=== PATIENT | female | born 1970 ===

== ENCOUNTER 2024-12-14 13:56 | Outpatient (AMB) | payer OTHER, SELFPAY ==
--- NOTE | 2024-12-14 13:47 | HO.NEPHOV ---
Vital Signs 12/14/24 13:57 Height 5 ft 1 in Weight 172 lb 8 oz BMI 32.6 BP 132/86 Blood Pressure Location Lt brachial Position Sitting Pulse 104 H Pulse Source Pulse Oximeter Pulse Oximetry (%) 96 Oxygen Delivery Method Room Air Intake Visit Reasons: ENP: Primary Hypertension Allergies lobster Allergy (Verified 12/14/24 13:47) Unknown Medication List - Last Reconciled 12/14/24 by Michael Man MD amlodipine-benazepril 5-20 mg 1 cap PO DAILY atorvastatin 40 mg PO DAILY docusate sodium 100 mg PO DAILY epinephrine IM ferrous sulfate 325 mg PO DAILY labetalol 200 mg PO BID omeprazole 20 mg PO DAILY HPI Comments Details: Middle-aged woman with a history of hypertension since her mid 40s. Recently she was in [facility] Emergency room for chest pain and her blood pressure is elevated. Currently she is on amlodipine benazepril 5/20 a day along with labetalol 200 mg b.i.d.. She is here for further evaluation of hypertension. [facility] Medical History (Updated 12/14/24 @ 14:06 by Michael Man MD) Migraine headache Insomnia Hyperlipidemia Gastroesophageal reflux disease Anemia Hypertension Enlarged uterus Surgical History Hx of tubal ligation H/O breast biopsy H/O breast surgery History of reconstruction of right breast S/P lumpectomy, right breast History of appendectomy Family History Father Coronary artery disease Maternal Grandmother Lung cancer Social History (Updated 12/14/24 @ 13:59 by Cesilia Harrison CMA) Household Members: Significant Other Housing: House Alcohol intake: never Patient Tobacco Use Status: Never used Tobacco service: No Current occupational status: employed Review of Systems Const Denies fever(s) and Denies weight loss Card Denies chest pain Resp Denies cough and Denies hemoptysis GI Denies abdominal pain, Denies diarrhea and Denies nausea Musc Denies back pain Neuro Denies focal weakness Physical Exam Vital Signs: Last Vital Signs Pulse 104 H 12/14/24 13:57 BP 132/86 12/14/24 13:57 Pulse Ox 96 12/14/24 13:57 Oxygen Delivery Method Room Air 12/14/24 13:57 BMI result Body Mass Index 32.6 Comfortable Neck supple no JVD. Lungs entry equal no rales. Heart S1-S2 heard no gallop or rub. Abdomen soft nontender. Neuro alert awake oriented. No asterixis. Extremities no edema. Results Reviewed Results Reviewed: On November 19 2024, potassium was 3.3 serum creatinine was normal total CO2 was 33 Nephrology Results: No Data to Display Assessment & Plan Assessment & Plan (1) Hypertension: Code(s): I10 - Essential (primary) hypertension Category: Medical Plan Middle aged woman with resistant hypertension. She had an episode of hypokalemia. With mild alkalosis ,we should rule out hyperaldosteronism. Plan is to check serum aldosterone and plasma renin activity. I have asked her to hold amlodipine benazepril for 2 weeks and then go for the blood work. Once the blood work is completed she can go back on amlodipine benazepril. In the meantime she will stay on amlodipine 10 mg and labetalol 100 mg b.i.d.. Obtain 24 hour ambulatory blood pressure monitoring. Encouraged her to stay on low-sodium diet She was returned to office once the workup is completed. . Orders: Orders Aldost/Renin 2 Weeks I10 - Essential (primary) hypertension Basic Metabolic Panel 2 Weeks I10 - Essential (primary) hypertension Creatinine Urine 2 Weeks I10 - Essential (primary) hypertension Aldosterone 2 Weeks I10 - Essential (primary) hypertension Renin 2 Weeks I10 - Essential (primary) hypertension Total Protein Urine Random 2 Weeks I10 - Essential (primary) hypertension UA and rflx microscopic 2 Weeks I10 - Essential (primary) hypertension AMB 24 HR B/P Monitor PLACEMENT Today I10 - Essential (primary) hypertension Medications: New amlodipine 10 mg PO DAILY 30 tabs 1RF Coding Level of Care Code New Pt Level 4 (08100) Diagnoses Hypertension I10
[2024-12-14 13:57] VITALS: BP 132/86; PULSE 104; O2SAT 96; BMI 32.6
--- OUTSIDE RECORDS SUMMARY | 2024-12-14 16:06 | XMS_ITS | Clinical Summary ---
Author Organization [address] [place] [address] [place] [phone] Phone Care Team Providers Care Participant Administrator Name Role Phone Barbara Dunn MD Primary Care Provider [phone] Allergies Active Allergy Reactions Criticality Noted Date Comments Lobster 07/08/2024 Medications atorvastatin (LIPITOR) 40 mg tablet Take 1 Tablet by mouth daily. 3 Active labetaloL (NORMODYNE) 200 mg tablet 3 Active melatonin 10 mg tablet Take 1 Tab by mouth at bedtime as needed. Active omeprazole (PriLOSEC) [address] capsule Take 1 Capsule by mouth daily. 4 Active zolpidem (AMBIEN) 10 mg tablet Take 10 mg by mouth daily. 9 Active amLODIPine-clay zepril (LOTREL) 5-20 mg per capsule Take 1 Capsule by mouth daily. 3 Active docusate sodium (COLACE) 100 mg capsule Take 1 capsule (100 mg total) by mouth 1 (one) time each day. 90 each 1 5 05/23/20 25 Active EPINEPHrine (EpiPen 2-Gabriel) 0.3 mg/0.3 mL injection Inject 0.3 mL (0.3 mg total) under the skin if needed for anaphylaxis. 1 each 3 5 Active ferrous sulfate 325 mg (65 mg elemental iron) tablet Take 1 tablet (325 mg total) by mouth 1 (one) time each day. 90 tablet 1 5 Active docusate sodium (COLACE) 100 mg capsule Take 1 Capsule by mouth daily. 4 11/25/19 25 Discontinu ed(Reorder ) EPINEPHrine (EpiPen 2-Gabriel) 0.3 mg/0.3 mL injection Inject 0.3 mg mL into the skin daily as needed (Severe allergic anaphylaxis). 2 11/25/19 25 Discontinu ed(Reorder ) ferrous sulfate 325 mg (65 mg elemental iron) tablet TAKE 1 TABLET BY MOUTH EVERY DAY 3 11/25/19 25 Discontinu ed(Reorder ) Active Problems Problem Noted Date Diagnosed Date Enlarged uterus 05/07/2022 Overview (05/27/2024): Last Assessment & Plan: Pt informed likely fibroids and these are benign. Asymptomatic. Will obtain US to confirm. Hypertension 12/26/2017 Anemia 02/11/2017 Gastroesophageal reflux disease 02/11/2017 Hyperlipidemia 04/10/2016 Insomnia 11/02/2015 Migraine headache 03/23/2014 Encounters Date Type Department Care Team Description 11/25/2024 Telephone Adult Medicine [facility] [address] [place] [address] Barbara Dunn MD Joseph: Fax haritha 11/24/2024 2:00 PM EDT Office Visit Internal Medicine [facility] [address] [place] [address] Oliver Robins MD Primary hypertension (Primary Dx); Hypercholesterolemia; Chest pain at rest 11/19/2024 8:05 PM EDT - 11/20/2024 4:[address] [facility] Emergency [address] [place] [address] Discharge Disposition: Home or Self Care from Last 3 Months Immunizations Name Administration Dates Next Due Pfizer SARS-CoV-2 COVID-19, mRNA, LNP-S, preservative free 02/08/2021 Tdap Tetanus diptheria acell ular pertussis (Boostrix; Adacel) 7yo and older 02/06/2024 Surgical History Surgery Date Site/Laterality Comments TUBAL LIGATION PROCEDURE: HISTORICAL TUBAL LIGATION OTHER SURGICAL HISTORY 01/03/2016 Right PROCEDURE: RADICAL REMOVAL OF BREAST; COMMENT: residual ductal carcinoma BREAST RECONSTRUCTION 2014 Right PROCEDURE: BREAST RECONSTRUCTION BREAST LUMPECTOMY 11/24/2015 Right PROCEDURE: HISTORICAL BREAST LUMPECTOMY; COMMENT: with reexcision (12/06/15) STEREOTACTIC BREAST BIOPSY 10/30/2015 Right PROCEDURE: STEREOTACTIC BREAST BIOPSY; COMMENT: ductal carcinoma in situ OTHER SURGICAL HISTORY 12/11/2017 Right PROCEDURE: MS REVISION OF RECONSTRUCTED BREAST; COMMENT: right nipple areaolar complex APPENDECTOMY Medical History Medical History Date Comments Anemia DX:Anemia Gastroesophageal reflux disease 02/11/2017 DX:Gastroesophageal reflux disease History of breast cancer 10/29/2016 DX:Hist ory of breast cancer; COMMENT: 2015 S/p right masectomy for ER + DCIS, widespread; S/p reconstruction; 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, CARRIER Hyperlipidemia 04/10/2016 DX:Hyperlipidemi a Hypertension 12/26/2017 DX:Hypertension Insomnia 11/02/2015 DX:Insomnia Migraine headache 03/23/2014 DX:Migraine he adache Heart murmur Constipation Family History Medical History Relation Name Comments Coronary artery disease Father Lung cancer Maternal Grandmother Colon cancer Neg Hx Ovarian cancer Neg Hx Pancreatic cancer Neg Hx Prostate cancer Neg Hx Uterine cancer Neg Hx Relation Name Status Comments Daughter Alive Father Maternal Grandfather Maternal Grandmother Mother Alive Paternal Grandfather Paternal Grandmother Social History Tobacco Use Types Packs/Day Years Used Date Smoking Tobacco: Never Smokeless Tobacco: Never Alcohol Use Standard Drinks/Week Comments No 0 (1 standard drink = 0.6 oz pur e alcohol) Interpersonal Safety Answer Date Record ed Physical Abuse 07/08/2024 Verbal Abuse 07/08/2024 Comments No Sex and Gender Information Value Date Recorded Sex Assigned at Not on file Legal Sex Female 3:03 PM EST Gender Identity Not on file Sexual Orientation Not on file Obstetrics History Last Filed Vital Signs Vital Sign Reading Time Taken Comments Blood Pressure 160/88 11/24/2024 2:22 PM EDT Pulse 90 11/24/2024 2:22 PM EDT Temperature 36.1 ??C (96.9 ??F) 11/24/2024 2:22 PM ED T Respiratory Rate 18 11/19/2024 11:40 PM EDT Oxygen Saturation 98% 11/24/2024 2:22 PM EDT Inhaled Oxygen Concentration - - Weight 75 kg (165 lb 6.4 oz) 11/24/2024 2:22 PM EDT Height 154.9 cm (5' 1 ) 11/24/2024 2:22 PM EDT Body Mass Index 31.25 11/24/2024 2:22 PM EDT Plan of Treatment Upcoming Encounters Date Type Department Care Team (Late st Contact Info) Description 02/03/2025 9:00 AM EDT [facility]ointment [facility] [address] [place] [phone] 03/28/2025 3:15 PM EDT Office Visit Internal Medicine - [place] [address] [facility] [address] [place] [phone] Oliver Robins MD [address] [facility] [address] [place] [address] Health Maintenance Due Date Last Done Comments Breast Cancer Screening 1970 Hepatitis B Vaccines (1 of 3 - 19+ 3-dose series) 1990 Pneumococcal Vaccine: 50+ Years (1 of 1 - PCV) 2021 Zoster Vaccines (1 of 2) 2021 Social Influencers of Health Screening 07/17/2022 COVID-19 Vaccine ( - season) 2024 09/13/2021, 02/08/2021, 01/18/2021 Depression Screening 02/05/2025 02/06/2024 Influenza Vaccine (Season Ended) 2025 05/09/2022 Hypertension/CHF/CAD Annual BMP Blood Test 11/19/2025 11/19/2024, 06/07/2024, 03/08/2024, Additional history exists Cervical Cancer Screening: HPV 05/07/2027 05/07/2022 Cholesterol Screening (Lipid Panel) 02/05/2029 02/06/2024, 02/06/2024 DTaP,Tdap,and Td Vaccines (2 - Td or Tdap) 02/05/2034 02/06/2024 Colorectal Cancer Screening: Colonoscopy 07/08/2034 07/08/2024 HIV Screening Completed 07/23/2017 Hepatitis C Screening Completed 02/06/2024 HIB Vaccines Aged Out No longer eligi ble based on patient's age to complete this topic HPV Vaccines Aged Out No longer eligi ble based on patient's age to complete this topic Hepatitis A Vaccines Aged Out No long er eligible based on patient's age to complete this topic IPV Vaccines Aged Out No longer eligi ble based on patient's age to complete this topic MMR Vaccines Aged Out No longer eligi ble based on patient's age to complete this topic Meningococcal ACWY Vaccine Aged Out N o longer eligible based on patient's age to complete this topic Meningococcal B Vaccine Aged Out No l onger eligible based on patient's age to complete this topic Pneumococcal Vaccine: Pediatrics (0 to 5 Years) and At-Risk Patients (6 to 64 Years) Aged Out No longer eligible based on patient's age to complete this topic RSV Immunization Patients Under 20 months Aged Out No longer eligible based on patient's age to complete this topic Varicella Vaccines Aged Out No longer eligible based on patient's age to complete this topic Procedures Procedure Name Priority Date/Time Associated Diagnosis Comments ECG ANNOTATED 11/22/2024 XR CHEST 2 VIEWS STAT 11/19/2024 9:42 PM EDT ECG 12-LEAD STAT 11/19/2024 9:36 PM EDT POC , URINE DIAGNOSTIC STAT 11/19/2024 9:35 PM EDT TROPONIN I HIGH SENSITIVITY STAT 11/19/2024 9:33 PM EDT CBC WITH AUTO DIFFERENTIAL STAT 11/19/2024 8:19 PM EDT B-TYPE NATRIURETIC PEPTIDE STAT 11/19/2024 8:19 PM EDT MAGNESIUM STAT 11/19/2024 8:19 PM EDT LIPASE STAT 11/19/2024 8:19 PM EDT COMPREHENSIVE METABOLIC PANEL STAT 11/19/2024 8:19 PM EDT CBC AND DIFFERENTIAL STAT 11/19/2024 8:19 PM EDT TROPONIN I HIGH SENSITIVITY STAT 11/19/2024 8:19 PM EDT ECG 12-LEAD STAT 11/19/2024 8:13 PM EDT COLONOSCOPY Routine 07/08/2024 2:13 PM EST Screen for colon cancer HEPATITIS C SCREENING Routine 02/06/2024 DEPRESSION SCREENING Routine 02/06/2024 LIPID PANEL Routine 02/06/2024 HPV Routine 05/07/2022 HIV SCREENING Routine 07/23/2017 from Last 3 Months or Most Recently Relevant to Health Maintenance Results * ECG-Annotated (11/22/2024) us Provider Onbase MD ECG ORDERABLES Final Result * XR Chest 2 Views (11/19/2024 9:42 PM EDT) Anatomical Region Laterality Modality Body Radiographic Kimberlee ging 11/20/2024 8:02 AM EDT Impressions 11/20/2024 8:03 AM EDT Hypoinflation with bibasilar atelectasis. No pneumonia or edema in the mid or upper lung zones. -------- FINAL REPORT -------- Dictated By: Ishmael Hanley Dictated Date: 11/20/2024 08:02 ET Assigned Physician: Ishmael Hanley Reviewed and Electronically Signed By: Ishmael Hanley Signed Date: 11/20/2024 08:03 ET Workstation ID: [id number] Transcribed By: Self Edit Transcribed Date: 11/20/2024 08:02 ET Narrative 11/20/2024 8:03 AM EDT EXAMINATION: CHEST CLINICAL INFORMATION: Chest pain. Shortness of breath COMPARISON: Frontal view 02/06/16 TECHNIQUE: 2 views of the chest FINDINGS: Minimal rotation toward the left. Tortuous aorta. The cardiac size is top normal with a left ventricular configuration. There is no hilar mass or vascular congestion. No edema. Basilar hypoinflation with subsegmental linear opacities possibly atelectasis. No pneumothorax. Mild osteophytes in the spine Procedure Note Ishmael Hanley MD - 11/20/2024 EXAMINATION: CHEST CLINICAL INFORMATION: Chest pain. Shortness of breath COMPARISON: Frontal view 02/06/16 TECHNIQUE: 2 views of the chest FINDINGS: Minimal rotation toward the left. Tortuous aorta. The cardiac size is topnormal with a left ventricular configuration. There is no hilar mass orvascular congestion. No edema. Basilar hypoinflation with subsegmental linear opacities possiblyatelectasis. No pneumothorax. Mild osteophytes in the spine IMPRESSION: Hypoinflation with bibasilar atelectasis. No pneumonia or edema in the mid or upper lung zones. -------- FINAL REPORT -------- Dictated By: Ishmael Hanley Dictated Date: 11/20/2024 08:02 ET Assigned Physician: Ishmael Hanley Reviewed and Electronically Signed By: Ishmael Hanley Signed Date: 11/20/2024 08:03 ET Workstation ID: [id number] Transcribed By: Self Edit Transcribed Date: 11/20/2024 08:02 ET Santo Kian Martínez MD IMG XR PROCEDURES Final Result * ECG 12 lead (11/19/2024 9:36 PM EDT) Only the most recent of2 resultswithin the time period is included. Ventricular Rate ECG 74 BPM GEMUSE Atrial Rate 74 BPM GEMUSE P-R Interval 192 ms GEMUSE QRS Duration 88 ms GEMUSE Q-T Interval 380 ms GEMUSE QTc 421 ms GEMUSE P Wave [place] 44 degrees GEMUSE R [place] 32 degrees GEMUSE T [place] 25 degrees GEMUSE ECG Interpretation Normal sinus rhythm Normal ECG When compared with ECG of 19-NOV-2024 20:13, (unconfirmed) No significant change was found Confirmed by MARKY OLSEN ([id number]) on 11/21/2024 9:54:05 AM GEMUSE 11/19/2024 9:36 PM EDT 11/21/2024 9:54 AM EDT us Santo Martínez MD ECG ORDERABLES Final Result Performing Organization Address City/[facility]/ZIP Co de Phone Number GEMUSE * POC , urine manually resulted (11/19/2024 9:35 PM EDT) HCG, Ur POC Negative Negative POC hCG Int QC Pass? Yes Yes Urine Urine specimen obtained by clean catch procedure / Unknown 11/19/2024 9:35 PM EDT Carrie Santillan DO POINT OF CARE TEST ENTER/ EDIT ORDERABLES Final Result * Troponin I high sensitivity (11/19/2024 9:33 PM EDT) Only the most recent of2 resultswithin the time period is included. Pathologist [facility] High Sensitivity Troponin I 16 <=54 ng/L LAB CHEMISTRY METHOD 11/19/2024 10:15 PM EDT [facility] Blood Venous blood specimen / Unknown Venipuncture / Unknown 11/19/2024 9:33 PM EDT 11/19/2024 9:46 PM EDT Narrative [facility] - 11/19/2024 10:15 PM EDT High levels of biotin in samples may falsely decrease hsTroponin values. ??Use caution when interpreting hsTroponin results in patients taking biotin who exhibit renal impairment (eGFR <60) or in patients taking more than 20 mg/day of biotin. us Santo Martínez MD LAB BLOOD ORDERABLES Final Resu lt Performing Organization Address City/[facility]/ZIP Co de Phone Number [facility] [address] [place] [address], [place] [phone] * (ABNORMAL) CBC auto differential (11/19/2024 8:19 PM EDT) [facility] WBC 9.2 4.8 - 10.8 K/mcL LAB HEMETOLOGY METHOD 11/19/2024 8:36 PM EDT [facility] RBC 4.20 3.80 - 4.80 M/mcL LAB HEMETOLOGY METHOD 11/19/2024 8:36 PM EDT [facility] Hemoglobin 11.6 11.5 - 16.0 g/dL LAB HEMETOLOGY METHOD 11/19/2024 8:36 PM EDT [facility] Hematocrit 36.0 35.0 - 47.0 % LAB HEMETOLOGY METHOD 11/19[facility]2024 8:[facility] MCV 86.3 79.0 - 98.0 FL LAB HEMETOLOGY METHOD 11/19/2024 8:36 [facility] MCH 27.8 27.0 - 32.0 pcg LAB HEMETOLOGY METHOD 11/19/2024 8:36 PM EDT [facility] MCHC 32.2 32.0 - 37.0 g/dL LAB HEMETOLOGY METHOD 11/19/2024 8:36 PM EDT [facility] RDW 13.4 11.0 - 15.0 % LAB HEMETOLOGY METHOD 11/19/2024 8:36 PM EDT [facility] Platelets 279 130 - 400 K/[facility] LAB HEMETOLOGY METHOD 11/19/2024 8:36 PM EDT [facility] MPV 9.8 7.0 - 11.0 FL LAB HEMETOLOGY METHOD 11/19/2024 8:36 [facility] NRBC 0.0 <1.0 % LAB HEMETOLOGY METHOD 11/19/2024 8:36 [facility] NRBC Absolute 0.00 <0.10 K/[facility] LAB HEMETOLOGY METHOD 11/19/2024 8:36 PM [facility] Neutrophils Relative 58.4 % LAB HEMETOLOGY METHOD 11/19/2024 8:36 PM [facility] Lymphocytes Relative 30.4 % LAB HEMETOLOGY METHOD 11/19/2024 8:36 PM [facility] Monocytes Relative 9.8 % LAB HEMETOLOGY METHOD 11/19/2024 8:36 PM [facility] Eosinophils Relative 0.9 % LAB HEMETOLOGY METHOD 11/19/2024 8:36 PM [facility] Basophils Relative 0.1 % LAB HEMETOLOGY METHOD 11/19/2024 8:36 PM [facility] Immature Granulocytes Relative 0.4 % LAB HEMETOLOGY METHOD 11/19/2024 8:36 PM [facility] Neutrophils Absolute 5.35 1.50 - 7.00 K/mcL LAB HEMETOLOGY METHOD 11/19/2024 8:36 PM [facility] Lymphocytes Absolute 2.79 1.00 - 5.00 K/mcL LAB HEMETOLOGY METHOD 11/19/2024 8:36 PM [facility] Monocytes Absolute 0.90 0.20 - 1.00 K/mcL LAB HEMETOLOGY METHOD 11/19/2024 8:36 PM [facility] Eosinophils Absolute 0.08 0.00 - 0.50 K/mcL LAB HEMETOLOGY METHOD 11/19/2024 8:36 PM [facility] Basophils Absolute 0.01 0.00 - 0.20 K/mcL LAB HEMETOLOGY METHOD 11/19/2024 8:36 PM [facility] Immature Granulocytes Absolute 0.04(H) 0.00 - 0.03 K/mcL LAB HEMETOLOGY METHOD 11/19/2024 8:36 PM [facility] Blood Venous blood specimen / Unknown Venipuncture / Unknown 11/19/2024 8:19 PM EDT 11/19/2024 8:27 PM EDT Santo Martínez MD LAB BLOOD ORDERABLES Final Resu lt Performing Organization Address [facility]/ZIP Co de Phone Number [facility] [address] [place] [address], * B-type natriuretic peptide (11/19/2024 8:19 PM EDT) BNP 7 <=100 pcg/mL LAB CHEMISTRY METHOD 11/19/2024 9:04 PM EDT [facility] Blood Venous blood specimen / Unknown Venipuncture / Unknown 11/19/2024 8:19 PM EDT 11/19/2024 8:27 PM EDT Santo Martínez MD LAB BLOOD ORDERABLES Final Resu lt Performing Organization Address [facility]/ZIP Co de Phone Number [facility] [address] [place] [address], [place] [phone] * Magnesium (11/19/2024 8:19 PM EDT) Magnesium 1.9 1.9 - 2.6 mg/dL LAB CHEMISTRY METHOD 11/19/2024 8:57 PM EDT [facility] Blood Venous blood specimen / Unknown Venipuncture / Unknown 11/19/2024 8:19 PM EDT 11/19/2024 8:27 PM EDT us Santo Martínez MD LAB BLOOD ORDERABLES Final Resu lt [facility] [address] [place] [address], [place] [phone] * Lipase (11/19/2024 8:19 PM EDT) Pathologist [facility] Lipase 43 13 - 75 unit/L LAB CHEMISTRY METHOD 11/19/2024 8:57 PM EDT [facility] Blood Venous blood specimen / Unknown Venipuncture / Unknown 11/19/2024 8:19 PM EDT 11/19/2024 8:27 PM EDT Santo Martínez MD LAB BLOOD ORDERABLES Final Resu lt [facility] [address] [place] [address], * (ABNORMAL) Comprehensive metabolic panel (11/19/2024 8:19 PM EDT) [facility] Sodium 142 133 - 145 mmol/L LAB CHEMISTRY METHOD 11/19/2024 8:57 PM [facility] Potassium 3.4(L) 3.5 - 5.5 mmol/L LAB CHEMISTRY METHOD 11/19/2024 8:57 PM [facility] Chloride 106 96 - 110 mmol/L LAB CHEMISTRY METHOD 11/19/2024 8:57 PM [facility] CO2 33(H) 21 - 32 mmol/L LAB CHEMISTRY METHOD 11/19/2024 8:57 PM [facility] Anion Gap 3 3 - 11 LAB CHEMISTRY METHOD 11/19/2024 8:57 PM [facility] Glucose 93 70 - 100 mg/dL LAB CHEMISTRY METHOD 11/19/2024 8:57 PM [facility] BUN 24 5 - 25 mg/dL LAB CHEMISTRY METHOD 11/19/2024 8:57 PM [facility] Creatinine 1.24(H) 0.50 - 1.10 mg/dL LAB CHEMISTRY METHOD 11/19/2024 8:57 PM [facility] eGFR 52(L) >=60 mL/min/1. 73m2 LAB CHEMISTRY METHOD 11/19/2024 8:57 PM EDT [facility] Comment:Calculation based on the??Chronic Kidney Disease Epidemiology Collaboration (CKD-EPI) equation refit??without adjustment for race. BUN/Creatinine Ratio 19.4 LAB CHEMISTRY METHOD 11/19/2024 8:57 PM EDT [facility] Calcium 9.8 8.5 - 10.5 mg/dL LAB CHEMISTRY METHOD 11/19/2024 8:57 PM EDT [facility] AST (SGOT) 23 10 - 42 unit/L LAB CHEMISTRY METHOD 11/19/2024 8:57 PM [facility] ALT (SGPT) 36 10 - 60 unit/L LAB CHEMISTRY METHOD 11/19/2024 8:57 PM [facility] Alkaline Phosphatase 168(H) 42 - 121 unit/L LAB CHEMISTRY METHOD 11/19/2024 8:57 PM EDT [facility] Total Protein 7.8 6.0 - 8.0 g/dL LAB CHEMISTRY METHOD 11/19/2024 8:57 PM [facility] Albumin 4.2 3.2 - 5.0 g/dL LAB CHEMISTRY METHOD 11/19/2024 8:57 PM [facility] Total Bilirubin 0.3 0.0 - 1.4 mg/dL LAB CHEMISTRY METHOD 11/19/2024 8:57 PM EDT [facility] Blood Venous blood specimen / Unknown Venipuncture / Unknown 11/19/2024 8:19 PM EDT 11/19/2024 8:27 PM EDT us Santo Martínez MD LAB BLOOD ORDERABLES Final Resu lt [facility] [address] [place] [address], * COLONOSCOPY [place]est[place] - [facility] [facility] ENDOSCOPY (07/08/2024 2:13 PM EST) Anatomical Region Laterality Modality Endoscopy 07/08/2024 1:40 PM EST Impressions 07/08/2024 2:14 PM EST - Internal hemorrhoids. ? - The examination was otherwise normal. ? - No specimens collected. Recommendation: ?- Discharge patient to home. ? - Repeat colonoscopy in 10 years for screening ? purposes. Narrative 07/08/2024 2:[address] [facility] Patient Name: Edith Montez Procedure Date: 07/08/2024 1:40 PM Date of : 1970 Age: 54 Gender: Female Note Status: Finalized Attending MD: Chris Pittamn MD, Procedure Date No Time: 07/08/2024 Procedure: ? Colonoscopy Indications: ? Screening for colorectal malignant neoplasm Providers: ? Chris Pittman MD Referring MD: ?Chris Pitmtan MD Medicines: ? Monitored Anesthesia Care Complications: ? No immediate complications. Estimated Blood Loss: ? Estimated blood loss: none. Procedure: ? Pre-Anesthesia Assessment: ? - Prior to the procedure, a History and Physical was ? performed, and patient medications and allergies were ? reviewed. The patient is competent. The risks and ? benefits of the procedure and the sedation options and ? risks were discussed with the patient. All questions ? were answered and informed consent was obtained. ? Patient identification and proposed procedure were ? verified by the physician, the nurse, the bull fiddle player ? and the pest control chemical technician in the pre-procedure area in the ? endoscopy suite. Mental Status Examination: alert and ? oriented. Airway Examination: normal oropharyngeal ? airway and neck mobility. Respiratory Examination: ? clear to auscultation. CV Examination: normal. ? Prophylactic Antibiotics: The patient does not require ? prophylactic antibiotics. Prior Anticoagulants: The ? patient has taken no anticoagulant or antiplatelet ? agents. ASA Grade Assessment: II - A patient with mild ? systemic disease. After reviewing the risks and ? benefits, the patient was deemed in satisfactory ? condition to undergo the procedure. The anesthesia ? plan was to use monitored anesthesia care (MAC). ? Immediately prior to administration of medications, ? the patient was re-assessed for adequacy to receive ? sedatives. The heart rate, respiratory rate, oxygen ? saturations, blood pressure, adequacy of pulmonary ? ventilation, and response to care were monitored ? throughout the procedure. The physical status of the ? patient was re-assessed after the procedure. ? After I obtained informed consent, the scope was ? passed under direct vision. Throughout the procedure, ? the patient's blood pressure, pulse, and oxygen ? saturations were monitored continuously. The Olympus ? Colonoscope was introduced through the anus and ? advanced to the cecum, identified by appendiceal ? orifice and ileocecal valve. The colonoscopy was ? performed without difficulty. The patient tolerated ? the procedure well. The quality of the bowel ? preparation was good. Findings: ?The perianal and digital rectal examinations were ? normal. ? Internal hemorrhoids were found during retroflexion. ? The hemorrhoids were Grade I (internal hemorrhoids ? that do not prolapse). ? The exam was otherwise without abnormality. Procedure Code(s): ? --- Professional --- ? G0121, Colorectal cancer screening; colonoscopy on ? individual not meeting criteria for high risk Diagnosis Code(s): ? --- Professional --- ? Z12.11, Encounter for screening for malignant neoplasm ? of colon CPT copyright 2020 [employer]. All rights reserved. The codes documented in this report are preliminary and upon imaging assistant review may be revised to meet current compliance requirements. Chris Pittman MD 07/08/2024 2:14:43 PM This report has been signed electronically.Chris Pittman MD Number of Addenda: 0 Note Initiated On: 07/08/2024 1:40 PM Scope Withdrawal Time: 0 hours 6 minutes 4 seconds Scope In: 2:06:33 PM Scope Out: 2:14:45 PM ? Endoscopy Department at [facility] - [address] [place] [address], ? [place] [address] Procedure Note Chris Pittman MD - 07/08/2024 [facility] Patient Name: Edith Montez Procedure Date: 07/08/2024 1:40 PM Date of : 1970 Age: 54 Gender: Female Note Status: Finalized Attending MD: Chris Pittman MD, Procedure Date No Time: 07/08/2024 Procedure: Colonoscopy Indications: Screening for colorectal malignant neoplasm Providers: Chris Pittman MD Referring MD: Chris Pittman MD Medicines: Monitored Anesthesia Care Complications: No immediate complications. Estimated Blood Loss: Estimated blood loss: none. Procedure: Pre-Anesthesia Assessment: - Prior to the procedure, a History and Physicalwas performed, and patient medications and allergieswere reviewed. The patient is competent. The risks and benefits of the procedure and the sedation optionsand risks were discussed with the patient. Allquestions were answered and informed consent was obtained. Patient identification and proposed procedure were verified by the physician, the nurse, theanesthetist and the pest control chemical technician in the pre-procedure area in the endoscopy suite. Mental Status Examination: alertand oriented. Airway Examination: normal oropharyngeal airway and neck mobility. Respiratory Examination: clear to auscultation. CV Examination: normal. Prophylactic Antibiotics: The patient does notrequire prophylactic antibiotics. Prior Anticoagulants: The patient has taken no anticoagulant or antiplatelet agents. ASA Grade Assessment: II - A patient withmild systemic disease. After reviewing the risks and benefits, the patient was deemed in satisfactory condition to undergo the procedure. The anesthesia plan was to use monitored anesthesia care (MAC). Immediately prior to administration of medications, the patient was re-assessed for adequacy to receive sedatives. The heart rate, respiratory rate, oxygen saturations, blood pressure, adequacy of pulmonary ventilation, and response to care were monitored throughout the procedure. The physical status ofthe patient was re-assessed after the procedure. After I obtained informed consent, the scope was passed under direct vision. Throughout theprocedure, the patient's blood pressure, pulse, and oxygen saturations were monitored continuously. TheOlympus Colonoscope was introduced through the anus and advanced to the cecum, identified by appendiceal orifice and ileocecal valve. The colonoscopy was performed without difficulty. The patient tolerated the procedure well. The quality of the bowel preparation was good. Findings: The perianal and digital rectal examinations were normal. Internal hemorrhoids were found duringretroflexion. The hemorrhoids were Grade I (internal hemorrhoids that do not prolapse). The exam was otherwise without abnormality. Procedure Code(s): --- Professional --- G0121, Colorectal cancer screening; colonoscopy on individual not meeting criteria for high risk Diagnosis Code(s): --- Professional --- Z12.11, Encounter for screening for malignantneoplasm of colon CPT copyright 2020 [employer]. All rights reserved. The codes documented in this report are preliminary and upon imaging assistant reviewmay be revised to meet current compliance requirements. Chris Pittman MD 07/08/2024 2:14:43 PM This report has been signed electronically.Chris Pittman MD Number of Addenda: 0 Note Initiated On: 07/08/2024 1:40 PM Scope Withdrawal Time: 0 hours 6 minutes 4 seconds Scope In: 2:06:33 PM Scope Out: 2:14:45 PM Endoscopy Department at [address] [id number] IMPRESSION: - Internal hemorrhoids. - The examination was otherwise normal. - No specimens collected. Recommendation: - Discharge patient to home. - Repeat colonoscopy in 10 years for screening purposes. Chris Pittman MD GI~PROCEDURE ORDERABLES Fin al Result * Depression Screening (02/06/2024) Depression Screening Abstracted Historical Provider HEALTH MAINTENANCE Final Result * Hepatitis C Screening (02/06/2024) Hepatitis C Screening Abstracted Historical Provider HEALTH MAINTENANCE Final Result * (ABNORMAL) Lipid panel (02/06/2024) [facility] LDL/HDL Ratio 4 0 - 4 Triglycerides 146 0 - 150 mg/dL Cholesterol 206(A) 0 - 200 mg/dL HDL 53 >=40 mg/dL LDL Cholesterol 124(A) 0 - 100 mg/dL Blood Venous blood specimen / Unknown Historical Provider LAB BLOOD ORDERABLES Liz l Result * Cervical Cancer Screening: HPV (05/07/2022) [facility] Cervical Cancer Screening: HPV Negative, Abstracted Historical Provider HEALTH MAINTENANCE Final Result * HIV Screening (07/23/2017) [facility] HIV Screening Abstracted Historical Provider HEALTH MAINTENANCE Final Result from Last 3 Months or Most Recently Relevant to Health Maintenance Insurance [facility] [place] [address] Care Teams Participant Administrator Relationship Specialty Start Date End Date Barbara Dunn MD [address] [place] [address] PCP - General 09/15/23
--- OUTSIDE RECORDS SUMMARY | 2024-12-14 16:06 | XMS_ITS | Clinical Summary ---
Author Organization [facility] Address [address] [place] [address] Care Team Providers Care Hard Rock Drill Operator Name Role Phone Oliver Robins MD Primary Care Provider Unavailab le Social History Tobacco Use Types Packs/Day Years Used Date Smoking Tobacco: Never Assessed Sex and Gender Information Value Date Recorded Sex Assigned at Not on file Gender Identity Not on file Sexual Orientation Not on file Plan of Treatment Not on file Care Teams Hard Rock Drill Operator Relationship Specialty Start Date End Date Oliver Robins MD PCP - General Internal Medicine 05/08/20
--- OUTSIDE RECORDS SUMMARY | 2024-12-14 16:06 | XMS_ITS | Encounter Summary ---
Author Organization [facility] Address [address] [place] [address] Care Team Providers Care Director Of Special Services Name Role Phone Barbara Dunn MD Primary Care Provider [phone] Reason for Visit * Reason Onset Date Comments Shimon: Prisca haritha 11/25/2024 Encounter Details Date Type Department Care Team (Late st Contact Info) Description 11/25/[address] [phone] Barbara Dunn MD [address] [place] [id number] Shimon: Fax haritha Social History Tobacco Use Types Packs/Day Years [...] on file Sexual Orientation Not on file documented as of this encounter Progress Notes * Joy Ruiz MA - 11/25/2024 3:45 PM EDT Faxed * Love Collado - 11/25/2024 1:18 PM EDT [facility] called and is requesting patient office notes on why she was referred. Please advise documented in this encounter Plan of Treatment Upcoming Encounters Date Type Department Care Team (Late st Contact Info) Description 02/03/2025 9:00 AM EDT Appointment [facility] [address] [place] [address] 03/28/2025 3:15 PM EDT Office Visit Internal Medicine - [place] [address] [facility] [address] [place] [phone] Oliver Robins MD [address] [facility] [address] [place] [address] documented as of this encounter Visit Diagnoses Not on filedocumented in this encounter Care Teams Director Of Special Services Relationship Specialty Start Date End Date Barbara Dunn MD [address] [place] [id number] PCP - General 09/15/23 documented as of this encounter
--- OUTSIDE RECORDS SUMMARY | 2024-12-14 16:06 | XMS_ITS ---
Author Name [facility] Organization Unknown Care Team Organization Name Specialty Phone Email Start Date End Da te [facility] ROSE ORDONEZ Primary Care 06/25/2022 04/05/20 24
== END 2024-12-14 14:08 | disposition home or self-care (01) ==
PROVIDERS: PCP Internal Medicine; Visit Provider Internal Medicine Hypertension Specialist
DX: I10 Essential (primary) hypertension (principal)
CPT/HCPCS: 99204

== ENCOUNTER → 2024-12-14 13:56 | Outpatient (BNVA) | payer OTHER, SELFPAY | PROVIDERS: PCP Internal Medicine; Visit Provider Internal Medicine Hypertension Specialist | DX: I10 Essential (primary) hypertension (principal) | CPT/HCPCS: 99202 ==

== ENCOUNTER 2024-12-28 15:39 | Outpatient (AMB) | payer OTHER, SELFPAY ==
[2024-12-28 15:47] VITALS: BP 122/84; PULSE 104; O2SAT 98
--- NOTE | 2024-12-28 15:47 | HO.NEPHOV_ITS ---
Vital Signs 12/28/24 15:47 Height 5 ft 1 in BP 122/84 Blood Pressure Location Lt brachial Position Sitting Pulse 104 H Pulse Source Pulse Oximeter Pulse Oximetry (%) 98 Oxygen Delivery Method Room Air Intake Visit Reasons: 2 weeks fu Medical Technologist Generalist Required: No Accompanied by: Self / Same As Patient Allergies lobster Allergy (Verified 12/28/24 15:50) Unknown Medication List - Last Reconciled 12/28/24 by Michael Man MD amlodipine 10 mg PO DAILY atorvastatin 40 mg PO DAILY docusate sodium 100 mg PO DAILY epinephrine IM ferrous sulfate 325 mg PO DAILY labetalol 200 mg PO BID omeprazole 20 mg PO DAILY HPI Comments Details: Middle-aged woman with a history of hypertension since her mid 40s. Recently she was in [facility] Emergency room for chest pain and her blood pressure is elevated. Currently she is on amlodipine benazepril 5/20 a day along with labetalol 200 mg b.i.d.. She is here for further evaluation of hypertension. 12/28/24 Underwent work up as outlined Lab results are pending No hypokalemia or Alkalosis PA/PRA is pending underwent ABPM No new issues today [facility] Medical History (Updated 12/14/24 @ 14:06 by Michael Man MD) Migraine headache Insomnia Hyperlipidemia Gastroesophageal reflux disease Anemia Hypertension Enlarged uterus Surgical History Hx of tubal ligation H/O breast biopsy H/O breast surgery History of reconstruction of right breast S/P lumpectomy, right breast History of appendectomy Family History Father Coronary artery disease Maternal Grandmother Lung cancer Social History Household Members: Significant Other Housing: House Alcohol intake: never Patient Tobacco Use Status: Never used Tobacco service: No Current occupational status: employed Physical Exam Vital Signs: Last Vital Signs Pulse 104 H 12/28/24 15:47 BP 122/84 12/28/24 15:47 Pulse Ox 98 12/28/24 15:47 Oxygen Delivery Method Room Air 12/28/24 15:47 Comfortable Neck supple no JVD. Lungs entry equal no rales. Heart S1-S2 heard no gallop or rub. Abdomen soft nontender. Neuro alert awake oriented. No asterixis. Extremities no edema. Results Reviewed Results Reviewed: Labs noted PA/PRA pending Nephrology Results: No Data to Display Assessment & Plan Assessment & Plan (1) Hypertension: Code(s): I10 - Essential (primary) hypertension Category: Medical Plan Middle aged woman with resistant hypertension. She had an episode of hypokalemia. With mild alkalosis ,we should rule out hyperaldosteronism. PA/PRA is pending 24 hr ABPM shows ABPM stage 1 HTN Non dipper In theoffice today,BP is acceptable Keep current meds pending PA/PRA Encouraged her to stay on low-sodium diet . Orders: Orders AMB 24 HR B/P Monitor INTERPRETATION Today I10 - Essential (primary) hypertensi on Coding Level of Care Code Est Pt Level 4 (95154) Diagnoses Hypertension I10
--- OUTSIDE RECORDS SUMMARY | 2024-12-28 16:22 | XMS_ITS | Clinical Summary ---
Author Organization [address] [place] [address] [place] [phone] Phone Care Team Providers Care Screw Machine Set Up Operator Name Role Phone Barbara Dunn MD Primary Care Provider [phone] Allergies Active Allergy Reactions Criticality Noted Date Comments Lobster 07/08/2024 Medications atorvastatin (LIPITOR) 40 mg tablet Take 1 Tablet by mouth daily. 01/24/2023 Active labetaloL (NORMODYNE) 200 mg tablet 01/24/2023 Active melatonin 10 mg tablet Take 1 Tab by mouth at bedtime as needed. Active omeprazole (PriLOSEC) [address] capsule Take 1 Capsule by mouth daily. 02/06/2024 Active zolpidem (AMBIEN) 10 mg tablet Take 10 mg by mouth daily. 11/18/2018 Active amLODIPine-clay zepril (LOTREL) 5-20 mg per capsule Take 1 Capsule by mouth daily. 01/24/2023 Active docusate sodium (COLACE) 100 mg capsule Take 1 capsule (100 mg total) by mouth 1 (one) time each day. 90 each 1 11/24/2024 Active EPINEPHrine (EpiPen 2-Gabriel) 0.3 mg/0.3 mL injection Inject 0.3 mL (0.3 mg total) under the skin if needed for anaphylaxis. 1 each 3 11/24/2024 Active ferrous sulfate 325 mg (65 mg elemental iron) tablet Take 1 tablet (325 mg total) by mouth 1 (one) time each day. 90 tablet 1 11/24/2024 Active Active Problems Problem Noted Date Diagnosed Date Enlarged uterus 05/07/2022 Overview (05/27/2024): Last Assessment & Plan: Pt informed likely fibroids and these are benign. Asymptomatic. Will obtain US to confirm. Hypertension 12/26/2017 Anemia 02/11/2017 Gastroesophageal reflux disease 02/11/2017 Hyperlipidemia 04/10/2016 Insomnia 11/02/2015 Migraine headache 03/23/2014 Encounters Date Type Department Care Team Description 11/25/2024 Telephone Adult Medicine [facility] [address] [place] [address] Barbara Dunn MD Joseph: Fax haritha 11/24/2024 2:00 PM EDT Office Visit Internal Medicine - [place] 175 [facility] [address] [place] [phone] Oliver Robins MD Primary hypertension (Primary Dx); Hypercholesterolemia; Chest pain at rest 11/19/2024 8:05 PM EDT - 11/20/2024 4:30 AM EDT Emergency [facility] Emergency [address] [place] [phone] Discharge Disposition: Home or Self Care from [...] situ OTHER SURGICAL HISTORY 12/11/2017 Right PROCEDURE: OR REVISION OF RECONSTRUCTED BREAST; COMMENT: right nipple [...] AM EDT [facility]ment [facility] at [address] [phone] 03/28/2025 3:15 PM EDT Office Visit Internal Medicine - [place] 175 [facility] 200 [place] [address] Oliver Robins MD 175 [facility] 200 [place] [address] Health Maintenance Due Date Last Done Comments Breast Cancer Screening 1970 Hepatitis B Vaccines (1 of 3 - 19+ 3-dose series) 1990 Pneumococcal Vaccine: 50+ Years (1 of 1 - PCV) 2021 Zoster Vaccines (1 of 2) 2021 Social Influencers of Health Screening 07/17/2022 COVID-19 Vaccine ( season) 2024 09/13/2021, 02/08/2021, 01/18/2021 Depression Screening 02/05/2025 02/06/2024 Influenza Vaccine (Season Ended) 2025 05/09/2022 Hypertension/CHF/CAD Annual BMP Blood Test 12/28/2025 12/28/2024, 11/19/2024, 06/07/2024, Additional history exists Cervical Cancer Screening: HPV [...] Procedure Name Priority Date/Time Associated Diagnosis Comments URINALYSIS WITH REFLEX MICROSCOPIC Routine 12/28/2024 11:22 AM EDT High blood pressure URINALYSIS WITH REFLEX MICROSCOPIC Routine 12/28/2024 11:22 AM EDT High blood pressure BASIC METABOLIC PANEL Routine 12/28/2024 11:17 AM EDT High blood pressure ECG ANNOTATED 11/22/2024 XR CHEST 2 VIEWS [...] Recently Relevant to Health Maintenance Results * (ABNORMAL) Urinalysis with reflex microscopic (12/28/2024 11:22 AM EDT) Specific [place] Urine 1.021 1.003 - 1.030 LAB URINALYSIS - AUTOMATED METHOD 12/28/2024 1:15 PM [facility] pH, Urine 5.5 5.0 - 8.0 pH LAB URINALYSIS - AUTOMATED METHOD 12/28/2024 1:15 PM [facility] Leukocytes, Urine Negative Negative LAB URINALYSIS - AUTOMATED METHOD 12/28/2024 1:15 PM [facility] Nitrite, Urine Negative Negative LAB URINALYSIS - AUTOMATED METHOD 12/28/2024 1:15 PM [facility] Protein, Urine 30(A) <=Trace mg/dL LAB URINALYSIS - AUTOMATED METHOD 12/28/2024 1:15 PM [facility] Glucose, Urine Negative Negative mg/dL LAB URINALYSIS - AUTOMATED METHOD 12/28/2024 1:15 PM [facility] Ketones, Urine Trace(A) Negative mg/dL LAB URINALYSIS - AUTOMATED METHOD 12/28/2024 1:15 PM EDT [facility] Urobilinogen , Urine 1.0 0.2 - 1.0 mg/dL LAB URINALYSIS - AUTOMATED METHOD 12/28/2024 1:15 PM [facility] Bilirubin, Urine Negative Negative LAB URINALYSIS - AUTOMATED METHOD 12/28/2024 1:15 PM [facility] Blood, Urine Negative Negative LAB URINALYSIS - AUTOMATED METHOD 12/28/2024 1:15 PM [facility] RBC, Urine 1.0 0 - 4 /HPF LAB URINALYSIS - AUTOMATED METHOD 12/28/2024 1:15 PM [facility] WBC, Urine 4.0 0 - 4 /HPF LAB URINALYSIS - AUTOMATED METHOD 12/28/2024 1:15 PM [facility] Squamous Epithelial, Urine >100(H) 0 - 60 /LPF LAB URINALYSIS - AUTOMATED METHOD 12/28/2024 1:15 PM [facility] Bacteria, Urine Moderate(A) Negative /HPF LAB URINALYSIS - AUTOMATED METHOD 12/28/2024 1:15 PM [facility] Hyaline Casts, Urine 2.8 0 - 3 /LPF LAB URINALYSIS - AUTOMATED METHOD 12/28/2024 1:15 PM [facility] Urine Urine specimen obtained by clean catch procedure / Unknown Non-blood Collection / Unknown 12/28/2024 11:22 AM EDT 12/28/2024 12:47 PM EDT us Michael Man MD LAB URINE ORDERABL ES Final Result [facility] [address] [place] [address], [place] [phone] * (ABNORMAL) Basic metabolic panel (12/28/2024 11:17 AM EDT) Sodium 138 133 - 145 mmol/L LAB CHEMISTRY METHOD 12/28/2024 3:07 PM [facility] Potassium 3.8 3.5 - 5.5 mmol/L LAB CHEMISTRY METHOD 12/28/2024 3:07 PM [facility] Chloride 107 96 - 110 mmol/L LAB CHEMISTRY METHOD 12/28/2024 3:07 PM [facility] CO2 25 21 - 32 mmol/L LAB CHEMISTRY METHOD 12/28/2024 3:07 PM [facility] Anion Gap 6 3 - 11 LAB CHEMISTRY METHOD 12/28/2024 3:07 PM [facility] Glucose 102(H) 70 - 100 mg/dL LAB CHEMISTRY METHOD 12/28/2024 3:07 PM [facility] BUN 22 5 - 25 mg/dL LAB CHEMISTRY METHOD 12/28/2024 3:07 PM [facility] Creatinine 0.90 0.50 - 1.10 mg/dL LAB CHEMISTRY METHOD 12/28/2024 3:07 PM [facility] eGFR 77 >=60 mL/min/1. 73m2 LAB CHEMISTRY METHOD 12/28/2024 3:07 PM [facility] Comment:Calculation based on the Chronic Kidney Disease Epidemiology Collaboration (CKD-EPI) equation refit without adjustment for race. BUN/Creatinine Ratio 24.4 LAB CHEMISTRY METHOD 12/28/2024 3:07 PM [facility] Calcium 9.5 8.5 - 10.5 mg/dL LAB CHEMISTRY METHOD 12/28/2024 3:07 PM [facility] Blood Venous blood specimen / Unknown Venipuncture / Unknown 12/28/2024 11:17 AM EDT 12/28/2024 12:43 PM EDT Michael Man MD LAB BLOOD ORDERABL ES Final Result [facility] ([facility]) [facility] [address] [place] [address], * ECG-Annotated (11/22/2024) us Provider Onbase MD [...] Signed Date: 11/20/2024 08:03 ET Workstation ID: [id number] Transcribed By: Self Edit Transcribed Date: 11/20/2024 [...] Signed Date: 11/20/2024 08:03 ET Workstation ID: [id number] Transcribed By: Self Edit Transcribed Date: 11/20/2024 [...] GEMUSE QTc 421 ms GEMUSE P Wave [place] 44 degrees GEMUSE R [place] 32 degrees GEMUSE T [place] 25 degrees GEMUSE ECG Interpretation Normal sinus rhythm Normal ECG When compared with ECG of 19-NOV-2024 20:13, (unconfirmed) No significant change was found Confirmed by MARKY OLSEN ([id number]) on 11/21/2024 9:54:05 AM GEMUSE 11/19/2024 9:36 PM EDT 11/21/2024 9:54 AM EDT Santomicha Martínez MD ECG ORDERABLES Final Result GEMUSE * POC , urine manually resulted (11/19/2024 9:35 PM EDT) HCG, Ur POC Negative Negative POC hCG Int QC Pass? Yes Yes Urine Urine specimen obtained by clean catch procedure / Unknown 11/19/2024 9:35 PM EDT Carrie Callaway Tyrell DO POINT OF CARE TEST ENTER/ EDIT ORDERABLES Final Result * Troponin I high sensitivity (11/19/2024 9:33 PM EDT) Only the most recent of2 resultswithin the time period is included. [facility] High Sensitivity Troponin I 16 <=54 ng/L LAB CHEMISTRY METHOD 11/19/2024 10:15 PM EDT [facility] Blood Venous blood specimen / Unknown Venipuncture / Unknown 11/19/2024 9:33 PM EDT 11/19/2024 9:46 PM EDT Narrative [facility] - 11/19/2024 10:15 PM EDT High levels of biotin in samples may falsely decrease hsTroponin values. ??Use caution when interpreting hsTroponin results in patients taking biotin who exhibit renal impairment (eGFR <60) or in patients taking more than 20 mg/day of biotin. Santo Martínez MD LAB BLOOD ORDERABLES Final Resu lt [facility] [address] [place] [address], [place] [phone] * (ABNORMAL) CBC auto differential (11/19/2024 8:19 PM EDT) [facility] WBC 9.2 4.8 - 10.8 K/mcL LAB HEMETOLOGY METHOD 11/19/2024 8:36 PM EDT [facility] RBC 4.20 3.80 - 4.80 M/mcL LAB HEMETOLOGY METHOD 11/19/2024 8:36 PM EDT [facility] Hemoglobin 11.6 11.5 - 16.0 g/dL LAB HEMETOLOGY METHOD 11/19/2024 8:36 PM EDT [facility] Hematocrit 36.0 35.0 - 47.0 % LAB HEMETOLOGY METHOD 11/19/2024 8:36 PM EDT [facility] MCV 86.3 79.0 - 98.0 FL LAB HEMETOLOGY METHOD 11/19/2024 8:36 PM EDT [facility] MCH 27.8 27.0 - 32.0 pcg LAB HEMETOLOGY METHOD 11/19/2024 8:36 PM [facility] MCHC 32.2 32.0 - 37.0 g/dL LAB HEMETOLOGY METHOD 11/19/2024 8:36 PM EDT [facility] RDW 13.4 11.0 - 15.0 % LAB HEMETOLOGY METHOD 11/19/2024 8:36 PM [facility] Platelets 279 130 - 400 K/mcL LAB HEMETOLOGY METHOD 11/19/2024 8:36 PM [facility] MPV 9.8 7.0 - 11.0 FL LAB HEMETOLOGY METHOD 11/19/2024 8:36 PM EDT [facility] NRBC 0.0 <1.0 % LAB HEMETOLOGY METHOD 11/19/2024 8:36 PM [facility] NRBC Absolute 0.00 <0.10 K/mcL LAB HEMETOLOGY METHOD 11/19/2024 8:36 PM [facility] Neutrophils Relative 58.4 % LAB HEMETOLOGY METHOD 11/19/2024 8:36 PM [facility] Lymphocytes Relative 30.4 % LAB HEMETOLOGY METHOD 11/19/2024 8:36 PM [facility] Monocytes Relative 9.8 % LAB HEMETOLOGY METHOD 11/19[facility]2024 8:[facility] Eosinophils Relative 0.9 % LAB HEMETOLOGY METHOD 11/19/2024 8:36 PM [facility] Basophils Relative 0.1 % LAB HEMETOLOGY METHOD 11/19/2024 8:36 PM EDT [facility] Immature Granulocytes Relative 0.4 % LAB HEMETOLOGY METHOD 11/19/2024 8:36 PM EDT [facility] Neutrophils Absolute 5.35 1.50 - 7.00 K/[facility] LAB HEMETOLOGY METHOD 11/19/2024 8:36 PM EDT [facility] Lymphocytes Absolute 2.79 1.00 - 5.00 K/mcL LAB HEMETOLOGY METHOD 11/19/2024 8:36 PM EDT [facility] Monocytes Absolute 0.90 0.20 - 1.00 K/[facility] LAB HEMETOLOGY METHOD 11/19/2024 8:36 PM EDT [facility] Eosinophils Absolute 0.08 0.00 - 0.50 K/mcL LAB HEMETOLOGY METHOD 11/19/2024 8:36 PM EDT [facility] Basophils Absolute 0.01 0.00 - 0.20 K/mcL LAB HEMETOLOGY METHOD 11/19/2024 8:36 PM EDT [facility] Immature Granulocytes Absolute 0.04(H) 0.00 - 0.03 K/mcL LAB HEMETOLOGY METHOD 11/19/2024 8:36 PM EDT [facility] Blood Venous blood specimen / Unknown Venipuncture / Unknown 11/19/2024 8:19 PM EDT 11/19/2024 8:27 PM EDT us Santo Kian Mratínez MD LAB BLOOD ORDERABLES Final Resu lt [facility] [address] [place] [address], * B-type natriuretic peptide (11/19/2024 8:19 PM EDT) BNP 7 <=100 pcg/mL LAB CHEMISTRY METHOD 11/19/2024 9:04 PM EDT [facility] Blood Venous blood specimen / Unknown Venipuncture / Unknown 11/19/2024 8:19 PM EDT 11/19/2024 8:27 PM EDT us Santo Martínez MD LAB BLOOD ORDERABLES Final Resu lt Performing Organization Address [facility]/ZIP Co de Phone Number [facility] [address] [place] [address], [place] [phone] * Magnesium (11/19/2024 8:19 PM EDT) Magnesium 1.9 1.9 - 2.6 mg/dL LAB CHEMISTRY METHOD 11/19/2024 8:57 PM EDT [facility] Blood Venous blood specimen / Unknown Venipuncture / Unknown 11/19/2024 8:19 PM EDT 11/19/2024 8:27 PM EDT Santo Martínez MD LAB BLOOD ORDERABLES Final Resu lt Performing Organization Address [facility] de Phone Number [facility] [address] [place] [address], [place] [phone] * Lipase (11/19/2024 8:19 PM EDT) Lipase 43 13 - 75 unit/L LAB CHEMISTRY METHOD 11/19/2024 8:57 PM EDT [facility] Blood Venous blood specimen / Unknown Venipuncture / Unknown 11/19/2024 8:19 PM EDT 11/19/2024 8:27 PM EDT us Snato Martínez MD LAB BLOOD ORDERABLES Final Resu lt Performing Organization Address [facility]/ZIP Co de Phone Number [facility] [address] [place] [address], [place] [phone] * (ABNORMAL) Comprehensive metabolic panel (11/19/2024 8:19 PM EDT) Sodium 142 133 - 145 mmol/L LAB CHEMISTRY METHOD 11/19/2024 8:57 PM [facility] Potassium 3.4(L) 3.5 - 5.5 mmol/L LAB CHEMISTRY METHOD 11/19/2024 8:57 PM [facility] Chloride 106 96 - 110 mmol/L LAB CHEMISTRY METHOD 11/19/2024 8:57 PM [facility] CO2 33(H) 21 - 32 mmol/L LAB CHEMISTRY METHOD 11/19/2024 8:57 PM [facility] Anion Gap 3 3 - 11 LAB CHEMISTRY METHOD 11/19/2024 8:57 PM [facility] Glucose 93 70 - 100 mg/dL LAB CHEMISTRY METHOD 11/19/2024 8:57 PM [facility] BUN 24 5 - 25 mg/dL LAB CHEMISTRY METHOD 11/19/2024 8:57 PM [facility] Creatinine 1.24(H) 0.50 - 1.10 mg/dL LAB CHEMISTRY METHOD 11/19/2024 8:57 PM [facility] eGFR 52(L) >=60 mL/min/1. 73m2 LAB CHEMISTRY METHOD 11/19/2024 8:57 PM [facility] Comment:Calculation based on the??Chronic Kidney Disease Epidemiology Collaboration (CKD-EPI) equation refit??without adjustment for race. BUN/Creatinine Ratio 19.4 LAB CHEMISTRY METHOD 11/19/2024 8:57 PM [facility] Calcium 9.8 8.5 - 10.5 mg/dL LAB CHEMISTRY METHOD 11/19/2024 8:57 PM [facility] AST (SGOT) 23 10 - 42 unit/L LAB CHEMISTRY METHOD 11/19/2024 8:57 PM [facility] ALT (SGPT) 36 10 - 60 unit/L LAB CHEMISTRY METHOD 11/19/2024 8:57 PM EDT [facility] Alkaline Phosphatase 168(H) 42 - 121 unit/L LAB CHEMISTRY METHOD 11/19/2024 8:57 PM EDT [facility] Total Protein 7.8 6.0 - 8.0 g/dL LAB CHEMISTRY METHOD 11/19/2024 8:57 PM EDT [facility] Albumin 4.2 3.2 - 5.0 g/dL LAB CHEMISTRY METHOD 11/19/2024 8:57 PM EDT [facility] Total Bilirubin 0.3 0.0 - 1.4 mg/dL LAB CHEMISTRY METHOD 11/19/2024 8:57 PM EDT [facility] Blood Venous blood specimen / Unknown Venipuncture / Unknown 11/19/2024 8:19 PM EDT 11/19/2024 8:27 PM EDT Santo Kian Martínez MD LAB BLOOD ORDERABLES Final Resu lt [facility]) [facility] [address] [place] [address], * [place] [facility] [place] [facility] ENDOSCOPY (07/08/2024 2:13 PM EST) Anatomical Region Laterality Modality Endoscopy 07/08/2024 1:40 PM EST Impressions 07/08/2024 2:14 PM EST - Internal hemorrhoids. ? - The examination was otherwise normal. ? - No specimens collected. Recommendation: ?- Discharge patient to home. ? - Repeat colonoscopy in 10 years for screening ? purposes. Narrative 07/08/2024 2:14 PM EST [facility] Patient Name: Edith Montez Procedure Date: 07/08/2024 1:40 PM Date of : 1970 Age: 54 Gender: Female Note Status: Finalized Attending MD: Chris Pittman MD, Procedure Date No Time: 07/08/2024 Procedure: ? Colonoscopy Indications: ? Screening for colorectal malignant neoplasm Providers: ? Chris Pittman MD Referring MD: ?Chris Pittman MD Medicines: ? Monitored Anesthesia Care Complications: [...] verified by the physician, the nurse, the yarn examiner skeins ? and the asbestos abatement technician in the pre-procedure area in the [...] neoplasm ? of colon CPT copyright 2020 [employer] [place] [employer]. All rights reserved. The codes documented in this report are preliminary and upon drywall contractor review may be revised to meet current compliance requirements. Chris Pittman MD 07/08/2024 2:14:43 PM This report has been signed electronically.Chris Pittman MD Number of Addenda: 0 Note Initiated On: 07/08/2024 1:40 PM Scope Withdrawal Time: 0 hours 6 minutes 4 seconds Scope In: 2:06:33 PM Scope Out: 2:14:45 PM ? Endoscopy Department at [facility] - [address] [place] [address], ? [place] [address] Procedure Note Chris Pittman MD - 07/08/2024 [facility] GI Patient Name: Edith Montez Procedure [...] the physician, the nurse, theanesthetist and the asbestos abatement technician in the pre-procedure area in the [...] for malignantneoplasm of colon CPT copyright 2020 [employer] [place] [employer]. All rights reserved. The codes documented in this report are preliminary and upon drywall contractor reviewmay be revised to meet current compliance requirements. Chris Pittman MD 07/08/2024 2:14:43 PM This report has been signed electronically.Chris Pittman MD Number of Addenda: 0 Note Initiated On: 07/08/2024 1:40 PM Scope Withdrawal Time: 0 hours 6 minutes 4 seconds Scope In: 2:06:33 PM Scope Out: 2:14:45 PM Endoscopy Department at [address] [phone] IMPRESSION: - Internal hemorrhoids. - The examination was otherwise normal. - No specimens collected. Recommendation: - Discharge patient to home. - Repeat colonoscopy in 10 years for screening purposes. Result [facility] Chris Pittman MD GI~PROCEDURE ORDERABLES Fin al Result * Depression Screening (02/06/2024) [facility] Depression Screening Abstracted Result [facility] Provider HEALTH MAINTENANCE Final Result * Hepatitis C Screening (02/06/2024) [facility] Hepatitis C Screening Abstracted Result [facility] Provider HEALTH MAINTENANCE Final Result * (ABNORMAL) Lipid panel (02/06/2024) [facility] LDL/HDL Ratio 4 0 - 4 Triglycerides 146 0 - 150 mg/dL Cholesterol 206(A) 0 - 200 mg/dL HDL 53 >=40 mg/dL LDL Cholesterol 124(A) 0 - 100 mg/dL Blood Venous blood specimen / Unknown Result [facility] Provider LAB BLOOD ORDERABLES Liz l Result * Cervical Cancer Screening: HPV (05/07/2022) [facility] Cervical Cancer Screening: HPV Negative, Abstracted Result [facility] Provider HEALTH MAINTENANCE Final Result * HIV Screening (07/23/2017) HIV Screening Abstracted us Historical Provider HEALTH MAINTENANCE Final Result from Last 3 Months or Most Recently Relevant to Health Maintenance Insurance [facility] PL[facility] Care Teams Screw Machine Set Up Operator Relationship Specialty Start Date End Date Barbara Dunn MD [address] [place] [id number] PCP - General 09/15/23
--- OUTSIDE RECORDS SUMMARY | 2024-12-28 16:22 | XMS_ITS | Clinical Summary ---
Author Organization [facility] Address [address] [place] [address] Care Team Providers Care Manager Programs Name Role Phone Oliver Robins MD Primary Care Provider Unavailab le Social History Tobacco Use Types Packs/Day Years Used Date Smoking Tobacco: Never Assessed Sex and Gender Information Value Date Recorded Sex Assigned at Not on file Gender Identity Not on file Sexual Orientation Not on file Plan of Treatment Not on file Care Teams Manager Programs Relationship Specialty Start Date End Date Oliver Robins MD PCP - General Internal Medicine 05/08/20
--- OUTSIDE RECORDS SUMMARY | 2024-12-28 16:22 | XMS_ITS | Encounter Summary ---
Author Organization [facility] Address [address] [place] [address] Care Team Providers Care Casing Inspector Name Role Phone Barbara Dunn MD Primary Care Provider [phone] Reason for Visit * Reason Onset Date Comments Shimon: Prisca haritha 11/25/2024 Encounter Details Date Type Department Care Team (Late st Contact Info) Description 11/25/[address] [phone] Barbara Dunn MD [address] [place] [phone] Shimon: Fax haritha Social History Tobacco Use [...] AM EDT [facility]ment [facility] [address] [place] [address] 03/28/2025 3:15 PM EDT Office Visit Internal Medicine - [place] 175 [facility] [address] [place] [address] Oliver Robins MD 175 [facility] [address] [place] [address] documented as of this encounter Visit Diagnoses Not on filedocumented in this encounter Care Teams Casing Inspector Relationship Specialty Start Date End Date Barbara Dunn MD [address] [place] [phone] PCP - General 09/15/23 documented as of this encounter
== END 2024-12-28 16:03 | disposition home or self-care (01) ==
LOC: HO.HKA 15:40
PROVIDERS: PCP Internal Medicine; Visit Provider Internal Medicine Hypertension Specialist
DX: I10 Essential (primary) hypertension (principal)
CPT/HCPCS: 99214

== ENCOUNTER → 2024-12-28 15:39 | Outpatient (BNVA) | payer OTHER, SELFPAY | PROVIDERS: PCP Internal Medicine; Visit Provider Internal Medicine Hypertension Specialist | DX: I10 Essential (primary) hypertension (principal) | CPT/HCPCS: 99212 ==

== ENCOUNTER 2025-01-27 14:46 | Outpatient (AMB) | payer OTHER, SELFPAY ==
[2025-01-27 14:49] VITALS: BP 146/88; PULSE 92; O2SAT 96; BMI 32.3
--- NOTE | 2025-01-27 14:49 | HO.NEPHOV ---
Vital Signs 01/27/25 14:49 Height 5 ft 1 in Weight 171 lb BMI 32.3 BP 146/88 H Blood Pressure Location Lt brachial Position Sitting Pulse 92 Pulse Source Pulse Oximeter Pulse Oximetry (%) 96 Oxygen Delivery Method Room Air Intake Visit Reasons: 1 MO FU/Conf Head Piece Assembler Required: No Accompanied by: Self / Same As Patient Allergies lobster Allergy (Verified 01/27/25 14:51) Unknown Medication List - Last Reconciled 01/27/25 by Michael Man MD amlodipine 10 mg PO DAILY atorvastatin 40 mg PO DAILY docusate sodium 100 mg PO DAILY epinephrine IM ferrous sulfate 325 mg PO DAILY labetalol 200 mg PO BID omeprazole 20 mg PO DAILY HPI Comments Details: Middle-aged woman with a history of hypertension since her mid 40s. Recently she was in [facility] Emergency room for chest pain and her blood pressure is elevated. Currently she is on amlodipine benazepril 5/20 a day along with labetalol 200 mg b.i.d.. She is here for further evaluation of hypertension. 12/28/24 Underwent work up as outlined Lab results are pending No hypokalemia or Alkalosis PA/PRA is pending underwent ABPM 01/27/25 BP remains sub optimal [facility] Medical History (Updated 01/27/25 @ 15:00 by Michael Man MD) Migraine headache Insomnia Hyperlipidemia Gastroesophageal reflux disease Anemia Hypertension Enlarged uterus Surgical History Hx of tubal ligation H/O breast biopsy H/O breast surgery History of reconstruction of right breast S/P lumpectomy, right breast History of appendectomy Family History Father Coronary artery disease Maternal Grandmother Lung cancer Social History Household Members: Significant Other Housing: House Alcohol intake: never Patient Tobacco Use Status: Never used Tobacco service: No Current occupational status: employed Physical Exam Vital Signs: Last Vital Signs Pulse 92 01/27/25 14:49 BP 146/88 H 01/27/25 14:49 Pulse Ox 96 01/27/25 14:49 Oxygen Delivery Method Room Air 01/27/25 14:49 BMI result Body Mass Index 32.3 Comfortable Neck supple no JVD. Lungs entry equal no rales. Heart S1-S2 heard no gallop or rub. Abdomen soft nontender. Neuro alert awake oriented. No asterixis. Extremities no edema. Results Reviewed Results Reviewed: Labs noted PA and direct renin- normal Nephrology Results: No Data to Display Assessment & Plan Assessment & Plan (1) Hypertension: Code(s): I10 - Essential (primary) hypertension Category: Medical Plan Middle aged woman with resistant hypertension. She had an episode of hypokalemia. With mild alkalosis ,we should rule out hyperaldosteronism. 24 hr ABPM shows ABPM stage 1 HTN Non dipper In theoffice today,BP is acceptable Wood level 18 Direct renin 3.1 lab did not perform PRA Add Spironolactone [address] adrenals Encouraged her to stay on low-sodium diet . Orders: Orders CT adrenal wo/w IV con Today E26.9 - Hyperaldosteronism, unspecified, I10 - Essential (primary) hypertension Medications: New spironolactone 25 mg PO DAILY 90 tabs 1RF Coding Level of Care Code Est Pt Level 4 (85876) Diagnoses Hypertension I10
--- OUTSIDE RECORDS SUMMARY | 2025-01-27 17:22 | XMS_ITS | Clinical Summary ---
Author Organization [address] [place] [address] [place] [phone] Phone Care Team Providers Care Quiller Operator Name Role Phone Barbara Dunn MD Primary Care Provider [phone] Allergies Active Allergy Reactions Criticality Noted Date [...] Care Team Description 11/25/2024 Telephone Adult Medicine [facility] [address] [place] [address] Barbara Dunn MD Joseph: Fax haritha 11/24/2024 2:00 PM EDT Office Visit Internal Medicine - [place] [address] [facility] [address] [place] [phone] Oliver Robins MD Primary hypertension (Primary Dx); Hypercholesterolemia; Chest pain at rest 11/19/2024 8:05 PM EDT - 11/20/2024 4:30 AM EDT Emergency [facility] Emergency [address] [place] [phone] Discharge Disposition: Home or Self Care from [...] situ OTHER SURGICAL HISTORY 12/11/2017 Right PROCEDURE: MO REVISION OF RECONSTRUCTED BREAST; COMMENT: right nipple [...] AM EDT [facility] at [address] [phone] 03/28/2025 3:15 PM EDT Office Visit Internal Medicine - [place] [address] [facility] [address] [place] [phone] Oliver Robins MD [address] [facility] [address] [place] [address] Health Maintenance Due Date Last Done Comments [...] 12/28/2024 11:22 AM EDT High blood pressure PROTEIN, URINE, RANDOM Routine 11:22 AM EDT High blood pressure CREATININE, URINE, RANDOM Routine 12/28/2024 11:22 AM EDT High blood pressure URINALYSIS WITH REFLEX MICROSCOPIC Routine 12/28/2024 11:22 AM EDT High blood pressure BASIC METABOLIC PANEL Routine 12/28/2024 11:17 AM EDT High blood pressure ALDOSTERONE, DIRECT RENIN RATIO Routine 12/28/2024 11:17 AM EDT High blood [...] colon cancer HEPATITIS C SCREENING Routine 02/06/2024 HM DEPRESSION SCREENING Routine 02/06/2024 LIPID PANEL Routine 02/06/2024 HM HPV Routine 05/07/2022 HIV SCREENING Routine 07/23/2017 from Last 3 Months or Most Recently Relevant to Health Maintenance Results * (ABNORMAL) Urinalysis with reflex microscopic (12/28/2024 11:22 AM EDT) Specific Avenue Urine 1.021 1.003 - 1.030 LAB URINALYSIS - AUTOMATED METHOD 12/28/2024 1:15 PM EDT [facility] pH, Urine 5.5 5.0 - 8.0 pH LAB URINALYSIS - AUTOMATED METHOD 12/28/2024 1:15 PM EDT [facility] Leukocytes, Urine Negative Negative LAB URINALYSIS - AUTOMATED METHOD 12/28/2024 1:15 PM EDT [facility] Nitrite, Urine Negative Negative LAB URINALYSIS - AUTOMATED METHOD 12/28/2024 1:15 PM EDT [facility] Protein, Urine 30(A) <=Trace mg/dL LAB URINALYSIS - AUTOMATED METHOD 12/28/2024 1:15 PM [facility] Glucose, Urine Negative Negative mg/dL LAB URINALYSIS - AUTOMATED METHOD 12/28/2024 1:15 PM [facility] Ketones, Urine Trace(A) Negative mg/dL LAB URINALYSIS - AUTOMATED METHOD 12/28/2024 1:15 PM [facility] Urobilinogen , Urine 1.0 0.2 - 1.0 mg/dL LAB URINALYSIS - AUTOMATED METHOD 12/28/2024 1:15 PM [facility] Bilirubin, Urine Negative Negative LAB URINALYSIS - AUTOMATED METHOD 12/28/2024 1:15 PM [facility] Blood, Urine Negative Negative LAB URINALYSIS - AUTOMATED METHOD 12/28/2024 1:15 PM [facility] RBC, Urine 1.0 0 - 4 /HPF LAB URINALYSIS - AUTOMATED METHOD 12/28/2024 1:15 PM [facility] WBC, Urine 4.0 0 - 4 /HPF LAB URINALYSIS - AUTOMATED METHOD 12/28/2024 1:15 PM [facility] Squamous Epithelial, Urine >100(H) 0 - 60 /LPF LAB URINALYSIS - AUTOMATED METHOD 12/28/2024 1:15 PM [facility] Bacteria, Urine Moderate(A) Negative /HPF LAB URINALYSIS - AUTOMATED METHOD 12/28/2024 1:15 PM [facility] Hyaline Casts, Urine 2.8 0 - 3 /LPF LAB URINALYSIS - AUTOMATED METHOD 12/28/2024 1:15 PM [facility] Urine Urine specimen obtained by clean catch procedure / Unknown Non-blood Collection / Unknown 12/28/2024 11:22 AM EDT 12/28/2024 12:47 PM EDT us Michael Man MD LAB URINE ORDERABL ES Final Result Performing Organization Address [facility] Co de Phone Number [facility] [address] [place] [address], [place] [phone] * Protein, urine, random (12/28/2024 11:22 AM EDT) Protein, Urine 34 mg/dL LAB CHEMISTRY METHOD 12/28/2024 6:14 PM EDT [facility] Urine Urine specimen obtained by clean catch procedure / Unknown Non-blood Collection / Unknown 12/28/2024 11:22 AM EDT 12/28/2024 12:47 PM EDT us Michael Man MD LAB URINE ORDERABL ES Final Result Performing Organization Address [facility] de Phone Number [facility] [address] [place] [address], [place] [phone] * Creatinine, urine, random (12/28/2024 11:22 AM EDT) Creatinine, Urine 295.0 mg/dL LAB CHEMISTRY METHOD 12/28/2024 6:14 PM EDT [facility] Urine Urine specimen obtained by clean catch procedure / Unknown Non-blood Collection / Unknown 12/28/2024 11:22 AM EDT 12/28/2024 12:47 PM EDT us Michael Man MD LAB URINE ORDERABL ES Final Result Performing Organization Address [facility] Co de Phone Number [facility] [address] [place] [address], [place] [phone] * (ABNORMAL) Aldosterone, direct renin ratio (12/28/2024 11:17 AM EDT) Aldosterone 18.3 ng/dL 12/31/2024 8:58 PM EDT [facility] Comment: REFERENCE RANGE: Upright ?<= 39.2 ng/dL ?? Supine ? <= 23.2 ng/dL Direct Renin 3.3 3.1 - 57.1 pg/mL 12/31/2024 8:58 PM EDT [facility] Aldosterone/Dire ct Renin Ratio 5.5(H) 0.1 - 3.7 12/31/2024 8:58 PM EDT [facility] Comment: Test performed at [facility], [address], [place], [place] ??[address] ? [phone] Jolene Jennings MD, PhD - Air Carrier Maintenance Inspector Blood Venous blood specimen / Unknown Venipuncture / Unknown 12/28/2024 11:17 AM EDT 12/28/2024 12:41 PM EDT Michael Man MD LAB BLOOD ORDERABL ES Final Result [facility] [address] [place] [address] * (ABNORMAL) Basic metabolic panel (12/28/2024 11:17 AM EDT) Sodium 138 133 - 145 mmol/L LAB CHEMISTRY METHOD 12/28/2024 3:07 PM EDT [facility] Potassium 3.8 3.5 - 5.5 mmol/L LAB CHEMISTRY METHOD 12/28/2024 3:07 PM [facility] Chloride 107 96 - 110 mmol/L LAB CHEMISTRY METHOD 12/28/2024 3:07 PM [facility] CO2 25 21 - 32 mmol/L LAB CHEMISTRY METHOD 12/28/2024 3:07 PM [facility] Anion Gap 6 3 - 11 LAB CHEMISTRY METHOD 12/28/2024 3:07 PM EDT [facility] Glucose 102(H) 70 - 100 mg/dL LAB CHEMISTRY METHOD 12/28/2024 3:07 PM EDT [facility] BUN 22 5 - 25 mg/dL LAB CHEMISTRY METHOD 12/28/2024 3:07 PM EDT [facility] Creatinine 0.90 0.50 - 1.10 mg/dL LAB CHEMISTRY METHOD 12/28/2024 3:07 PM EDT [facility] eGFR 77 >=60 mL/min/1. 73m2 LAB CHEMISTRY METHOD 12/28/2024 3:07 PM EDT [facility] Comment:Calculation based on the Chronic Kidney Disease Epidemiology Collaboration (CKD-EPI) equation refit without adjustment for race. BUN/Creatinine Ratio 24.4 LAB CHEMISTRY METHOD 12/28/2024 3:07 PM EDT [facility] Calcium 9.5 8.5 - 10.5 mg/dL LAB CHEMISTRY METHOD 12/28/2024 3:07 PM EDT [facility] Blood Venous blood specimen / Unknown Venipuncture / Unknown 12/28/2024 11:17 AM EDT 12/28/2024 12:43 PM EDT Michael Man MD LAB BLOOD ORDERABL ES Final Result [facility] [address] [place] [address], * ECG-Annotated (11/22/2024) us Provider Onbase ECG ORDERABLES Final Result * XR Chest [...] Signed Date: 11/20/2024 08:03 ET Workstation ID: [id number] Transcribed By: Self Edit Transcribed Date: 11/20/2024 [...] Signed Date: 11/20/2024 08:03 ET Workstation ID: [id number] Transcribed By: Self Edit Transcribed Date: 11/20/2024 [...] GEMUSE QTc 421 ms GEMUSE P Wave Wagoner 44 degrees GEMUSE R Wagoner 32 degrees GEMUSE T Wagoner 25 degrees GEMUSE ECG Interpretation Normal sinus rhythm Normal ECG When compared with ECG of 19-NOV-2024 20:13, (unconfirmed) No significant change was found Confirmed by MARKY OLSEN ([id number]) on 11/21/2024 9:54:05 AM GEMUSE 11/19/2024 9:36 PM EDT 11/21/2024 9:54 AM EDT Santo Martínez MD ECG ORDERABLES Final Result GEMUSE * POC , urine manually resulted (11/19/2024 9:35 PM EDT) Pathologist [facility] HCG, Ur POC Negative Negative POC hCG Int QC Pass? Yes Yes Urine Urine specimen obtained by clean catch procedure / Unknown 11/19/2024 9:35 PM EDT Carrie Santillan DO POINT OF CARE TEST ENTER/ EDIT ORDERABLES Final Result * Troponin I high sensitivity (11/19/2024 9:33 PM EDT) Only the most recent of2 resultswithin the time period is included. [facility] High Sensitivity Troponin I 16 <=54 ng/L LAB CHEMISTRY METHOD 11/19/2024 10:15 PM EDT [facility] Blood Venous blood specimen / Unknown Venipuncture / Unknown 11/19/2024 9:33 PM EDT 11/19/2024 9:46 PM EDT Narrative [facility] - 11/19/2024 10:15 PM EDT High levels of biotin in samples may falsely decrease hsTroponin values. ??Use caution when interpreting hsTroponin results in patients taking biotin who exhibit renal impairment (eGFR <60) or in patients taking more than 20 mg/day of biotin. Santo Kian Martínez MD LAB BLOOD ORDERABLES Final Resu lt [facility] [address] [place] [address], * (ABNORMAL) CBC auto differential (11/19/2024 8:19 PM EDT) [facility] WBC 9.2 4.8 - 10.8 K/mcL LAB HEMETOLOGY METHOD 11/19/2024 8:36 PM EDT [facility] RBC 4.20 3.80 - 4.80 M/mcL LAB HEMETOLOGY METHOD 11/19/2024 8:36 PM EDT [facility] Hemoglobin 11.6 11.5 - 16.0 g/dL LAB HEMETOLOGY METHOD 11/19/2024 8:36 PM EDT [facility] Hematocrit 36.0 35.0 - 47.0 % LAB HEMETOLOGY METHOD 11/19/2024 8:36 PM EDT [facility] MCV 86.3 79.0 - 98.0 FL LAB HEMETOLOGY METHOD 11/19/2024 8:36 PM EDT [facility] MCH 27.8 27.0 - 32.0 pcg LAB HEMETOLOGY METHOD 11/19/2024 8:36 PM EDT [facility] MCHC 32.2 32.0 - 37.0 g/dL LAB HEMETOLOGY METHOD 11/19/2024 8:36 PM EDT [facility] RDW 13.4 11.0 - 15.0 % LAB HEMETOLOGY METHOD 11/19/2024 8:36 PM EDT [facility] Platelets 279 130 - 400 K/mcL LAB HEMETOLOGY METHOD 11/19/2024 8:36 PM EDT [facility] MPV 9.8 7.0 - 11.0 FL LAB HEMETOLOGY METHOD 11/19/2024 8:[facility] NRBC 0.0 <1.0 % LAB HEMETOLOGY METHOD 11/19/2024 8:36 PM EDT [facility] NRBC Absolute 0.00 <0.10 K/mcL LAB HEMETOLOGY METHOD 11/19/2024 8:36 PM [facility] Neutrophils Relative 58.4 % LAB HEMETOLOGY METHOD 11/19/2024 8:36 PM [facility] Lymphocytes Relative 30.4 % LAB HEMETOLOGY METHOD 11/19/2024 8:36 PM [facility] Monocytes Relative 9.8 % LAB HEMETOLOGY METHOD 11/19/2024 8:36 PM [facility] Eosinophils Relative 0.9 % LAB HEMETOLOGY METHOD 11/19/2024 8:36 PM [facility] Basophils Relative 0.1 % LAB HEMETOLOGY METHOD 11/19/2024 8:36 PM [facility] Immature Granulocytes Relative 0.4 % LAB HEMETOLOGY METHOD 11/19/2024 8:36 PM [facility] Neutrophils Absolute 5.35 1.50 - 7.00 K/mcL LAB HEMETOLOGY METHOD 11/19/2024 8:36 PM [facility] Lymphocytes Absolute 2.79 1.00 - 5.00 K/mcL LAB HEMETOLOGY METHOD 11/19/2024 8:36 PM [facility] Monocytes Absolute 0.90 0.20 - 1.00 K/mcL LAB HEMETOLOGY METHOD 11/19/2024 8:36 PM [facility] Eosinophils Absolute 0.08 0.00 - 0.50 K/[facility] LAB HEMETOLOGY METHOD 11/19/2024 8:36 PM EDT [facility] Basophils Absolute 0.01 0.00 - 0.20 K/[facility] LAB HEMETOLOGY METHOD 11/19/2024 8:36 PM EDT [facility] Immature Granulocytes Absolute 0.04(H) 0.00 - 0.03 K/[facility] LAB HEMETOLOGY METHOD 11/19/2024 8:36 PM EDT [facility] Blood Venous blood specimen / Unknown Venipuncture / Unknown 11/19/2024 8:19 PM EDT 11/19/2024 8:27 PM EDT Santo Kian Martínez MD LAB BLOOD ORDERABLES Final Resu lt Performing Organization Address [facility]/ZIP Co de Phone Number [facility] [address] [place] [address], * B-type natriuretic peptide (11/19/2024 8:19 PM EDT) BNP 7 <=100 pcg/mL LAB CHEMISTRY METHOD 11/19/2024 9:04 PM EDT [facility] Blood Venous blood specimen / Unknown Venipuncture / Unknown 11/19/2024 8:19 PM EDT 11/19/2024 8:27 PM EDT Santomicha Martínez MD LAB BLOOD ORDERABLES Final Resu lt Performing Organization Address City/[facility]/ZIP Co de Phone Number [facility] [address] [place] [address], [place] [phone] * Magnesium (11/19/2024 8:19 PM EDT) Magnesium 1.9 1.9 - 2.6 mg/dL LAB CHEMISTRY METHOD 11/19/2024 8:57 PM EDT [facility] Blood Venous blood specimen / Unknown Venipuncture / Unknown 11/19/2024 8:19 PM EDT 11/19/2024 8:[address] [facility] LAB BLOOD ORDERABLES Final Resu lt Performing Organization Address [facility]/ZIP Co de Phone Number [facility] [address] [place] [address], [place] [phone] * Lipase (11/19/2024 8:19 PM EDT) Lipase 43 13 - 75 unit/L LAB CHEMISTRY METHOD 11/19/2024 8:57 PM EDT [facility] Blood Venous blood specimen / Unknown Venipuncture / Unknown 11/19/2024 8:19 PM EDT 11/19/2024 8:27 PM EDT Santo Kian Martínez MD LAB BLOOD ORDERABLES Final Resu lt Performing Organization Address [facility]/ZIP Co de Phone Number [facility] [address] [place] [address], [place] [phone] * (ABNORMAL) Comprehensive metabolic panel (11/19/2024 8:19 PM EDT) Sodium 142 133 - 145 mmol/L LAB CHEMISTRY METHOD 11/19/2024 8:57 PM EDT [facility] Potassium 3.4(L) 3.5 - 5.5 mmol/L LAB CHEMISTRY METHOD 11/19/2024 8:57 PM EDT [facility] Chloride 106 96 - 110 mmol/L LAB CHEMISTRY METHOD 11/19/2024 8:57 PM EDT [facility] CO2 33(H) 21 - 32 mmol/L LAB CHEMISTRY METHOD 11/19/2024 8:57 PM EDT [facility] Anion Gap 3 3 - 11 LAB CHEMISTRY METHOD 11/19/2024 8:57 PM [facility] Glucose 93 70 - 100 mg/dL LAB CHEMISTRY METHOD 11/19/2024 8:57 PM [facility] BUN 24 5 - 25 mg/dL LAB CHEMISTRY METHOD 11/19/2024 8:57 PM [facility] Creatinine 1.24(H) 0.50 - 1.10 mg/dL LAB CHEMISTRY METHOD 11/19/2024 8:57 PM [facility] eGFR 52(L) >=60 mL/min/1. 73m2 LAB CHEMISTRY METHOD 11/19/2024 8:57 PM [facility] Comment:Calculation based on the??Chronic Kidney Disease Epidemiology Collaboration (CKD-EPI) equation refit??without adjustment for race. BUN/Creatinine Ratio 19.4 LAB CHEMISTRY METHOD 11/19/2024 8:57 PM [facility] Calcium 9.8 8.5 - 10.5 mg/dL LAB CHEMISTRY METHOD 11/19/2024 8:57 PM [facility] AST (SGOT) 23 10 - 42 unit/L LAB CHEMISTRY METHOD 11/19/2024 8:57 PM [facility] ALT (SGPT) 36 10 - 60 unit/L LAB CHEMISTRY METHOD 11/19/2024 8:57 PM [facility] Alkaline Phosphatase 168(H) 42 - 121 unit/L LAB CHEMISTRY METHOD 11/19/2024 8:57 PM [facility] Total Protein 7.8 6.0 - 8.0 g/dL LAB CHEMISTRY METHOD 11/19/2024 8:57 PM [facility] Albumin 4.2 3.2 - 5.0 g/dL LAB CHEMISTRY METHOD 11/19/2024 8:57 PM [facility] Total Bilirubin 0.3 0.0 - 1.4 mg/dL LAB CHEMISTRY METHOD 11/19/2024 8:57 PM EDT [facility] Blood Venous blood specimen / Unknown Venipuncture / Unknown 11/19/2024 8:19 PM EDT 11/19/2024 8:27 PM EDT Santo Kian Martínez MD LAB BLOOD ORDERABLES Final Resu lt [facility] ([facility]) [facility] [address] [place] [address], * COLONOSCOPY Anesthesia - MAC; [facility] ENDOSCOPY (07/08/2024 2:13 PM EST) Anatomical Region Laterality Modality Endoscopy 07/08/2024 1:40 PM EST Impressions 07/08/2024 2:14 PM EST - Internal hemorrhoids. ? - The examination was otherwise normal. ? - No specimens collected. Recommendation: ?- Discharge patient to home. ? - Repeat colonoscopy in 10 years for screening ? purposes. Narrative 07/08/2024 2:14 PM EST [facility] GI Patient Name: Delphine Montez Procedure Date: 07/08/2024 1:40 PM Date [...] verified by the physician, the nurse, the skip miner ? and the endoscopic technician in the pre-procedure area in the [...] neoplasm ? of colon CPT copyright 2020 [employer]. All rights reserved. The codes documented in this report are preliminary and upon conference organizer review may be revised to meet current compliance requirements. Chris Pittman MD 07/08/2024 2:14:43 PM This report has been signed electronically.Chris Pittman MD Number of Addenda: 0 Note Initiated On: 07/08/2024 1:40 PM Scope Withdrawal Time: 0 hours 6 minutes 4 seconds Scope In: 2:06:33 PM Scope Out: 2:14:45 PM ? Endoscopy Department at [facility] - [address] [place] [address], ? [place] [address] Procedure Note Chris Pittman MD - 07/08/2024 [facility] GI Patient Name: Delphine Montez Procedure Date: 07/08/2024 1:40 PM Date [...] the physician, the nurse, theanesthetist and the endoscopic technician in the pre-procedure area in the [...] for malignantneoplasm of colon CPT copyright 2020 [employer]. All rights reserved. The codes documented in this report are preliminary and upon conference organizer reviewmay be revised to meet current compliance requirements. Chris Pittman MD 07/08/2024 2:14:43 PM This report has been signed electronically.Chris Pittman MD Number of Addenda: 0 Note Initiated On: 07/08/2024 1:40 PM Scope Withdrawal Time: 0 hours 6 minutes 4 seconds Scope In: 2:06:33 PM Scope Out: 2:14:45 PM Endoscopy Department at [facility] - [address] [place] [phone] IMPRESSION: - Internal hemorrhoids. - The examination was otherwise normal. - No specimens collected. Recommendation: - Discharge patient to home. - Repeat colonoscopy in 10 years for screening purposes. Result [facility] Chris Pittman MD GI~PROCEDURE ORDERABLES Fin al Result * Depression Screening (02/06/2024) Pathologist [facility] Depression Screening Abstracted Result [facility] Historical Provider HEALTH MAINTENANCE Final Result * Hepatitis C Screening (02/06/2024) [facility] Hepatitis C Screening Abstracted [facility] Provider HEALTH MAINTENANCE Final Result * (ABNORMAL) Lipid panel (02/06/2024) [facility] LDL/HDL Ratio 4 0 - 4 Triglycerides 146 0 - 150 mg/dL Cholesterol 206(A) 0 - 200 mg/dL HDL 53 >=40 mg/dL LDL Cholesterol 124(A) 0 - 100 mg/dL Blood Venous blood specimen / Unknown Result [facility] Provider LAB BLOOD ORDERABLES Liz l Result * Cervical Cancer Screening: HPV (05/07/2022) [facility] Cervical Cancer Screening: HPV Negative, Abstracted Result [facility] Provider HEALTH MAINTENANCE Final Result * HIV Screening (07/23/2017) [facility] HIV Screening Abstracted Result [facility] Provider HEALTH MAINTENANCE Final Result from Last 3 Months or Most Recently Relevant to Health Maintenance Insurance [facility] [employer] Care Teams Quiller Operator Relationship Specialty Start Date End Date Barbara Dunn MD [address] [place] [id number] PCP - General 09/15/23
== END 2025-01-27 15:10 | disposition home or self-care (01) ==
LOC: HO.HKA 14:46
PROVIDERS: PCP Internal Medicine; Visit Provider Internal Medicine Hypertension Specialist
DX: I10 Essential (primary) hypertension (principal)
CPT/HCPCS: 99214

== ENCOUNTER → 2025-01-27 14:46 | Outpatient (BNVA) | payer OTHER, SELFPAY | PROVIDERS: PCP Internal Medicine; Visit Provider Internal Medicine Hypertension Specialist | DX: I10 Essential (primary) hypertension (principal); I26.90 Septic pulmonary embolism without acute cor pulmonale | CPT/HCPCS: 99212 ==

== ENCOUNTER 2025-03-28 15:47 | Outpatient (REF) | payer OTHER, SELFPAY ==
--- OUTSIDE RECORDS SUMMARY | 2025-03-28 15:49 | XMS_ITS ---
Author Name [facility] Organization Unknown Care Team Organization Name Specialty Phone Email Start Date End Da te [facility] ROSE ORDONEZ Primary Care 06/25/2022 04/05/20 24
--- OUTSIDE RECORDS SUMMARY | 2025-03-28 15:49 | XMS_ITS | Clinical Summary ---
Author Organization [address] [place] [address] [place] [phone] Phone Care Team Providers Care Roofing Sales Representative Name Role Phone Barbara Dunn MD Primary Care Provider [phone] Allergies Active Allergy Reactions Criticality Noted Date [...] each day. 90 tablet 1 11/24/2024 Active topiramate (TOPAMAX) 50 mg tablet Take 1 tablet (50 mg total) by mouth 2 (two) times a day. 60 each 3 03/28/2025 6 Active SUMAtriptan (IMITREX) 50 mg tablet Take 1 tablet (50 mg total) by mouth 1 (one) time if needed for migraine. May repeat dose once in 2 hours if no relief. Do not exceed 2 doses in 24 hours. 9 tablet 5 03/28/2025 6 Active Active Problems Problem Noted Date Diagnosed Date Enlarged uterus 05/07/2022 Overview (05/27/2024): Last Assessment & Plan: Pt informed likely fibroids and these are benign. Asymptomatic. Will obtain US to confirm. Hypertension 12/26/2017 Anemia 02/11/2017 Gastroesophageal reflux disease 02/11/2017 Hyperlipidemia 04/10/2016 Insomnia 11/02/2015 Migraine headache 03/23/2014 Encounters Date Type Department Care Team Description 03/28/2025 3:15 PM EDT Office Visit Internal Medicine - [address] [place] [address] Oliver Robins MD Primary hypertension (Primary Dx); Hypercholesterolemia; Migraine without aura and without status migrainosus, not intractable from Last 3 Months Immunizations Name Administration Dates Next Due C[place]ang SARS-CoV-2 COVID-19, mRNA, LNP-S, preservative free 02/08/2021 [...] situ OTHER SURGICAL HISTORY 12/11/2017 Right PROCEDURE: [place] REVISION OF RECONSTRUCTED BREAST; COMMENT: right nipple areaolar complex APPENDECTOMY Medical History Medical History Date Comments Anemia DX:Anemia Gastroesophageal reflux disease 02/11/2017 DX:Gastroesophageal reflux disease History of breast cancer 10/29/2016 DX:Hist ory of breast cancer; COMMENT: 2015 S/p right masectomy for ER + DCIS, widespread; S/p reconstruction; MUTYH a ssociated polyposis (MAP) syndrome, CARRIER Hyperlipidemia 04/10/2016 DX:Hyperlipidemi [...] Sign Reading Time Taken Comments Blood Pressure 112/74 03/28/2025 3:16 PM EDT Pulse 73 03/28/2025 3:16 PM EDT Temperature 35.9 C (96.7 F) 03/28/2025 3:16 PM EDT Respiratory Rate 18 11/19/2024 11:40 PM EDT Oxygen Saturation 96% 03/28/2025 3:16 PM EDT Inhaled Oxygen Concentration - - Weight 75.8 kg (167 lb) 03/28/2025 3:16 PM EDT Height 154.9 cm (5' 1 ) 03/28/2025 3:16 PM EDT Body Mass Index 31.55 03/28/2025 3:16 PM EDT Plan of Treatment Health Maintenance Due Date Last Done Comments Breast Cancer Screening 1971 Hepatitis B Vaccines (1 of 3 - 19+ 3-dose series) 1990 Pneumococcal Vaccine: 50+ Years (1 of 1 - PCV) 2021 Zoster Vaccines (1 of 2) 2021 Social Influencers of Health Screening 07/17/2022 COVID-19 Vaccine (4 - season) 2024 09/13/2021, 02/08/2021, 01/18/2021 Depression Screening 08/18/2024 02/06/2024 Influenza Vaccine (#1) 2025 05/09/2022 Hypertension/CHF/CAD Annual BMP Blood Test [...] High blood pressure PROTEIN, URINE, RANDOM Routine 12/28/2024 11:22 AM EDT High blood pressure CREATININE, URINE, RANDOM Routine 12/28/2024 11:22 AM EDT High blood pressure URINALYSIS WITH REFLEX MICROSCOPIC Routine 12/28/2024 11:22 AM EDT High blood pressure BASIC METABOLIC PANEL Routine 12/28/2024 11:17 AM EDT High blood pressure ALDOSTERONE, DIRECT RENIN RATIO Routine 12/28/2024 11:17 AM EDT High blood pressure COLONOSCOPY Routine 07/08/2024 2:13 PM EST Screen for colon cancer DEPRESSION SCREENING Routine 02/06/2024 HEPATITIS C SCREENING Routine 02/06/2024 LIPID PANEL Routine 02/06/2024 HM HPV Routine 05/07/2022 HIV SCREENING Routine 07/23/2017 from Last 3 Months or Most Recently Relevant to Health Maintenance Results * (ABNORMAL) Urinalysis with reflex microscopic (12/28/2024 11:22 AM EDT) Specific [place] Urine 1.021 1.003 - 1.030 LAB URINALYSIS - AUTOMATED METHOD 12/28/2024 1:15 PM [facility] pH, Urine 5.5 5.0 - 8.0 pH LAB URINALYSIS - AUTOMATED METHOD 12/28/2024 1:15 PM [facility] Leukocytes, Urine Negative Negative LAB URINALYSIS - AUTOMATED METHOD 12/28/2024 1:15 PM [facility] Nitrite, Urine Negative Negative LAB URINALYSIS - AUTOMATED METHOD 12/28/2024 1:15 PM [facility] Protein, Urine 30(A) <=Trace mg/dL LAB URINALYSIS - AUTOMATED METHOD 12/28/2024 1:15 PM [facility] Glucose, Urine Negative Negative mg/dL LAB URINALYSIS - AUTOMATED METHOD 12/28/2024 1:15 PM [facility] Ketones, Urine Trace(A) Negative mg/dL LAB URINALYSIS - AUTOMATED METHOD 12/28/2024 1:15 PM [facility] Urobilinogen , Urine 1.0 0.2 - 1.0 mg/dL LAB URINALYSIS - AUTOMATED METHOD 12/28/2024 1:15 PM [facility] Bilirubin, Urine Negative Negative LAB URINALYSIS - AUTOMATED METHOD 12/28/2024 1:15 PM [facility] Blood, Urine Negative Negative LAB URINALYSIS - AUTOMATED METHOD 12/28/2024 1:15 PM [facility] RBC, Urine 1.0 0 - 4 /HPF LAB URINALYSIS - AUTOMATED METHOD 12/28/2024 1:15 PM [facility] WBC, Urine 4.0 0 - 4 /HPF LAB URINALYSIS - AUTOMATED METHOD 12/28/2024 1:15 PM [facility] Squamous Epithelial, Urine >100(H) 0 - 60 /LPF LAB URINALYSIS - AUTOMATED METHOD 12/28/2024 1:15 PM [facility] Bacteria, Urine Moderate(A) Negative /HPF LAB URINALYSIS - AUTOMATED METHOD 12/28/2024 1:15 PM [facility] Hyaline Casts, Urine 2.8 0 - 3 /LPF LAB URINALYSIS - AUTOMATED METHOD 12/28/2024 1:15 PM [facility] Urine Urine specimen obtained by clean catch procedure / Unknown Non-blood Collection / Unknown 12/28/2024 11:22 AM EDT 12/28/2024 12:47 PM EDT us Michael Man MD LAB URINE ORDERABL ES Final Result Performing Organization Address [facility]/ZIP Co de Phone Number [facility] [address] [place] [address], [place] [phone] * Protein, urine, random (12/28/2024 11:22 AM EDT) Protein, Urine 34 mg/dL LAB CHEMISTRY METHOD 12/28/2024 6:14 PM EDT [facility] Urine Urine specimen obtained by clean catch procedure / Unknown Non-blood Collection / Unknown 12/28/2024 11:22 AM EDT 12/28/2024 12:47 PM EDT Michael Man MD LAB URINE ORDERABL ES Final Result Performing Organization Address [facility] Co de Phone Number [facility] [address] [place] [address], [place] [phone] * Creatinine, urine, random (12/28/2024 11:22 AM EDT) Creatinine, Urine 295.0 mg/dL LAB CHEMISTRY METHOD 12/28/2024 6:14 PM EDT [facility] Urine Urine specimen obtained by clean catch procedure / Unknown Non-blood Collection / Unknown 12/28/2024 11:22 AM EDT 12/28/2024 12:47 PM EDT us Michael Man MD LAB URINE ORDERABL ES Final Result Performing Organization Address [facility]/ZIP Co de Phone Number [facility] [address] [place] [address], [place] [phone] * (ABNORMAL) Aldosterone, direct renin ratio (12/28/2024 11:17 AM EDT) Aldosterone 18.3 ng/dL 12/31/2024 8:58 PM EDT [facility] Comment: REFERENCE RANGE: Upright <= 39.2 ng/dL Supine <= 23.2 ng/dL Direct Renin 3.3 3.1 - 57.1 pg/mL 12/31/2024 8:[address] [facility] Aldosterone/Dire ct Renin Ratio 5.5(H) 0.1 - 3.7 12/31/2024 8:[address] [facility] Comment: Test performed at [facility], [address] , [place] [address] Jolene Jennings MD, PhD - Residential Real Estate Assistant Blood Venous blood specimen / Unknown Venipuncture / Unknown 12/28/2024 11:17 AM EDT 12/28/2024 12:41 PM EDT Michael Man MD LAB BLOOD ORDERABL ES Final Result [facility] [address] [place] [address] * (ABNORMAL) Basic metabolic panel (12/28/2024 11:17 AM EDT) Sodium 138 133 - 145 mmol/L LAB CHEMISTRY METHOD 12/28/2024 3:07 PM [facility] Potassium 3.8 3.5 - 5.5 mmol/L LAB CHEMISTRY METHOD 12/28/2024 3:07 PM [facility] Chloride 107 96 - 110 mmol/L LAB CHEMISTRY METHOD 12/28/2024 3:07 PM [facility] CO2 25 21 - 32 mmol/L LAB CHEMISTRY METHOD 12/28/2024 3:07 PM [facility] Anion Gap 6 3 - 11 LAB CHEMISTRY METHOD 12/28/2024 3:07 PM [facility] Glucose 102(H) 70 - 100 mg/dL LAB CHEMISTRY METHOD 12/28/2024 3:07 PM [facility] BUN 22 5 - 25 mg/dL LAB CHEMISTRY METHOD 12/28/2024 3:07 PM EDT [facility] Creatinine 0.90 0.50 - 1.10 mg/dL LAB CHEMISTRY METHOD 12/28/2024 3:07 PM EDT [facility] eGFR 77 >=60 mL/min/1. 73m2 LAB CHEMISTRY METHOD 12/28/2024 3:07 PM EDT [facility] Comment:Calculation based on the Chronic Kidney Disease Epidemiology Collaboration (CKD-EPI) equation refit without adjustment for race. BUN/Creatinine Ratio 24.4 LAB CHEMISTRY METHOD 12/28/2024 3:07 PM EDT [facility] Calcium 9.5 8.5 - 10.5 mg/dL LAB CHEMISTRY METHOD 12/28/2024 3:07 PM EDT [facility] Blood Venous blood specimen / Unknown Venipuncture / Unknown 12/28/2024 11:17 AM EDT 12/28/2024 12:43 PM EDT Michael Man MD LAB BLOOD ORDERABL ES Final Result [facility] [address] [place] [address], * COLONOSCOPY Anesthesia - MAC; [facility] ENDOSCOPY (07/08/2024 2:13 PM EST) Anatomical Region Laterality Modality Endoscopy 07/08/2024 1:40 PM EST Impressions 07/08/2024 2:14 PM EST - Internal hemorrhoids. - The examination was otherwise normal. - No specimens collected. Recommendation: - Discharge patient to home. - Repeat colonoscopy in 10 years for screening purposes. Narrative 07/08/2024 2:14 PM EST [facility] GI Patient Name: Delphine Montez Procedure Date: [...] the procedure, a History and Physical was performed, and patient medications and allergies were reviewed. The patient is competent. The risks and benefits of the procedure and the sedation options and risks were discussed with the patient. All questions were answered and informed consent was obtained. Patient identification and proposed procedure were verified by the physician, the nurse, the chronometer assembler and adjuster and the process technician in the pre-procedure area in the endoscopy suite. Mental Status Examination: alert and oriented. Airway Examination: normal oropharyngeal airway and neck mobility. Respiratory Examination: clear to auscultation. CV Examination: normal. Prophylactic Antibiotics: The patient does not require prophylactic antibiotics. Prior Anticoagulants: The patient has taken no anticoagulant or antiplatelet agents. ASA Grade Assessment: II - A patient with mild systemic disease. After reviewing the risks and [...] monitored throughout the procedure. The physical status of the patient was re-assessed after the procedure. After I obtained informed consent, the scope was passed under direct vision. Throughout the procedure, the patient's blood pressure, pulse, and oxygen saturations were monitored continuously. The Olympus Colonoscope was introduced through the anus and advanced to the cecum, identified by appendiceal orifice and ileocecal valve. The colonoscopy was performed without difficulty. The patient tolerated the procedure well. The quality of the bowel preparation was good. Findings: The perianal and digital rectal examinations were normal. Internal hemorrhoids were found during retroflexion. The hemorrhoids were Grade I (internal hemorrhoids that do not prolapse). The exam was otherwise without abnormality. Procedure Code(s): --- Professional --- G0121, Colorectal cancer screening; colonoscopy on individual not meeting criteria for high risk Diagnosis Code(s): --- Professional --- Z12.11, Encounter for screening for malignant neoplasm of colon CPT copyright 2020 [employer]. All rights reserved. The codes documented in this report are preliminary and upon russian language instructor review may be revised to meet current compliance requirements. Chris Pittman MD 07/08/2024 2:14:43 PM This report has been signed electronically.Chris Pittman MD Number of Addenda: 0 Note Initiated On: 07/08/2024 1:40 PM Scope Withdrawal Time: 0 hours 6 minutes 4 seconds Scope In: 2:06:33 PM Scope Out: 2:14:45 PM Endoscopy Department at [facility] - [address] [place] [phone] Procedure Note Chris Pittman MD - 07/08/2024 [facility] GI Patient Name: Delphine Montez Procedure Date: [...] the physician, the nurse, theanesthetist and the process technician in the pre-procedure area in the [...] for malignantneoplasm of colon CPT copyright 2020 [employer]. All rights reserved. The codes documented in this report are preliminary and upon russian language instructor reviewmay be revised to meet current compliance requirements. Chris Pittman MD 07/08/2024 2:14:43 PM This report has been signed electronically.Chris Pittman MD Number of Addenda: 0 Note Initiated On: 07/08/2024 1:40 PM Scope Withdrawal Time: 0 hours 6 minutes 4 seconds Scope In: 2:06:33 PM Scope Out: 2:14:45 PM Endoscopy Department at [facility] - [address] [place] [phone] IMPRESSION: - Internal hemorrhoids. - The examination was otherwise normal. - No specimens collected. Recommendation: - Discharge patient to home. - Repeat colonoscopy in 10 years for screening purposes. us Chris Pittman MD GI~PROCEDURE ORDERABLES Fin al Result * Hm Depression Screening (02/06/2024) Pathologist [facility] Depression Screening Abstracted [facility] Provider HEALTH MAINTENANCE Final Result * Hepatitis C Screening (02/06/2024) [facility] Hepatitis C Screening Abstracted [facility] Provider HEALTH MAINTENANCE Final Result * (ABNORMAL) Lipid panel (02/06/2024) [facility] LDL/HDL Ratio 4 0 - 4 Triglycerides 146 0 - 150 mg/dL Cholesterol 206(A) 0 - 200 mg/dL HDL 53 >=40 mg/dL LDL Cholesterol 124(A) 0 - 100 mg/dL Blood Venous blood specimen / Unknown Result [facility] Provider LAB BLOOD ORDERABLES Liz l Result * Cervical Cancer Screening: HPV (05/07/2022) [facility] Cervical Cancer Screening: HPV Negative, Abstracted Result [facility] Provider HEALTH MAINTENANCE Final Result * HIV Screening (07/23/2017) [facility] HIV Screening Abstracted Result [facility] Provider HEALTH MAINTENANCE Final Result from Last 3 Months or Most Recently Relevant to Health Maintenance Insurance [facility] Care Teams Roofing Sales Representative Relationship Specialty Start Date End Date Barbara Dunn MD [address] [place] [id number] PCP - General 09/15/23
--- OUTSIDE RECORDS SUMMARY | 2025-03-28 15:49 | XMS_ITS | Clinical Summary ---
Author Organization [facility] Address [address] [place] [address] Care Team Providers Care Instrument Sterilizer Name Role Phone Oliver Robins MD Primary Care Provider Unavailab le Social History Tobacco Use Types Packs/Day Years Used Date Smoking Tobacco: Never Assessed Sex and Gender Information Value Date Recorded Sex Assigned at Not on file Gender Identity Not on file Sexual Orientation Not on file Plan of Treatment Not on file Care Teams Instrument Sterilizer Relationship Specialty Start Date End Date Oliver Robins MD PCP - General Internal Medicine 05/08/20
[2025-03-28 17:45] LABS: Appearance Urine Clear; Glucose Urine UA Negative (Negative); PH 5.5 (5.0-9.0); Specific Gravity - Urine >= 1.030 (1.005-1.025)
[2025-03-28 18:02] LABS: Anion Gap 12 (12-20); Blood Urea Nitrogen 21 mg/dL (9-16); Calcium 9.6 mg/dL (8.4-10.2); Carbon Dioxide 28 mmol/L (22-29); Chloride 105 mmol/L (96-108); Estimated Glomerular Filt Rate 41; Potassium 3.6 mmol/L (3.3-5.1); Sodium 141 mmol/L (135-145)
[2025-03-28 18:22] LABS: Total Protein Urine Random 17 mg/dL (<12)
[2025-04-04 14:03] LABS: Plasma Renin Activity 3.94 ng/mL/h (0.25-5.82)
== END 2025-03-28 15:48 | disposition home or self-care (01) ==
LOC: HO.HKASLDS 15:47
PROVIDERS: Visit Provider Internal Medicine Hypertension Specialist
DX: I10 Essential (primary) hypertension (principal)
CPT/HCPCS: 36415; 80048; 81003; 82088; 82570; 84156; 84244

== ENCOUNTER 2025-03-31 09:49 | Outpatient (AMB) | payer OTHER, SELFPAY ==
[2025-03-31 10:00] VITALS: BP 130/86; PULSE 83; O2SAT 97; BMI 32.3
--- NOTE | 2025-03-31 10:00 | HO.NEPHOV ---
Vital Signs 03/31/25 10:00 Height 5 ft 1 in Weight 171 lb BMI 32.3 BP 130/86 Blood Pressure Location Rt brachial Position Sitting Pulse 83 Pulse Source Pulse Oximeter Pulse Oximetry (%) 97 Oxygen Delivery Method Room Air Intake Visit Reasons: FU-Conf Catalogue Clerk Required: No Accompanied by: Self / Same As Patient Allergies lobster Allergy (Verified 03/31/25 10:03) Unknown Medication List - Last Reconciled 03/31/25 by Michael Man MD amlodipine 10 mg PO DAILY atorvastatin 40 mg PO DAILY docusate sodium 100 mg PO DAILY epinephrine IM ferrous sulfate 325 mg PO DAILY labetalol 200 mg PO BID omeprazole 20 mg PO DAILY spironolactone 25 mg PO DAILY HPI Comments Details: Middle-aged woman with a history of hypertension since her mid 40s. Recently she was in [facility] Emergency room for chest pain and her blood pressure is elevated. Currently she is on amlodipine benazepril 5/20 a day along with labetalol 200 mg b.i.d.. She is here for further evaluation of hypertension. 12/28/24 Underwent work up as outlined Lab results are pending No hypokalemia or Alkalosis PA/PRA is pending underwent ABPM 01/27/25; BP remains sub optimal 03/31/25 The patient is a 55-year-old female presenting for a follow-up on hypertension management and kidney function assessment. The patient has been monitoring her blood pressure at home, reporting stable readings without any episodes of lightheadedness, nausea, or vomiting. She is currently on spironolactone and amlodipine for hypertension management. The patient experienced a COVID-19 infection, which led to the rescheduling of a previously planned CAT scan. The scan is now scheduled for the of this month. The patient reports inadequate water intake, which may be contributing to decreased kidney function. She has been advised to increase her fluid intake, especially in hot weather, to support kidney health. [facility] Medical History (Updated 01/27/25 @ 15:00 by Michael Man MD) Migraine headache Insomnia Hyperlipidemia Gastroesophageal reflux disease Anemia Hypertension Enlarged uterus Surgical History Hx of tubal ligation H/O breast biopsy H/O breast surgery History of reconstruction of right breast S/P lumpectomy, right breast History of appendectomy Family History Father Coronary artery disease Maternal Grandmother Lung cancer Social History Household Members: Significant Other Housing: House Alcohol intake: never Patient Tobacco Use Status: Never used Tobacco service: No Current occupational status: employed Physical Exam Vital Signs: Last Vital Signs Pulse 83 03/31/25 10:00 BP 130/86 03/31/25 10:00 Pulse Ox 97 03/31/25 10:00 Oxygen Delivery Method Room Air 03/31/25 10:00 BMI result Body Mass Index 32.3 Comfortable Neck supple no JVD. Lungs entry equal no rales. Heart S1-S2 heard no gallop or rub. Abdomen soft nontender. Neuro alert awake oriented. No asterixis. Extremities no edema. Results Reviewed Nephrology Results: Sodium, (135-145) 141 mmol/L 03/28/25 Potassium, (3.3-5.1) 3.6 mmol/L 03/28/25 Chloride, (96-108) 105 mmol/L 03/28/25 Carbon Dioxide, (22-29) 28 mmol/L 03/28/25 BUN, (9-16) 21 mg/dL H 03/28/25 Creatinine, (0.5-1.4) 1.34 mg/dL 03/28/25 Calcium, (8.4-10.2) 9.6 mg/dL 03/28/25 Urine Protein, (Neg-Trace) Trace mg/dL 03/28/25 Urine Creatinine 432.83 mg/dL 03/28/25 Assessment & Plan Assessment & Plan (1) Hypertension: Code(s): I10 - Essential (primary) hypertension Category: Medical Plan Middle aged woman with resistant hypertension. She had an episode of hypokalemia. With mild alkalosis ,we should rule out hyperaldosteronism. 24 hr ABPM shows ABPM stage 1 HTN Non dipper In the office today,BP is acceptable Wood level 18 Direct renin 3.3 lab did not perform PRA Keep Spironolactone [address] adrenals No changes today Encouraged her to stay on low-sodium diet . Orders: Orders Basic Metabolic Panel 4 Weeks I10 - Essential (primary) hypertension Coding Level of Care Code Est Pt Level 4 (23774) Diagnoses Hypertension I10
--- OUTSIDE RECORDS SUMMARY | 2025-03-31 10:34 | XMS_ITS | Clinical Summary ---
Author Organization [facility] Address [address] [place] [address] Care Team Providers Care External Relations Manager Name Role Phone Oliver Robins MD Primary Care Provider Unavailab le Social History Tobacco Use Types Packs/Day Years Used Date Smoking Tobacco: Never Assessed Sex and Gender Information Value Date Recorded Sex Assigned at Not on file Gender Identity Not on file Sexual Orientation Not on file Plan of Treatment Not on file Care Teams External Relations Manager Relationship Specialty Start Date End Date Oliver Robins MD PCP - General Internal Medicine 05/08/20
--- OUTSIDE RECORDS SUMMARY | 2025-03-31 10:34 | XMS_ITS | Clinical Summary ---
Author Organization [address] [place] [address] [place] [phone] Phone Care Team Providers Care Boot Liner Maker Name Role Phone Barbara Dunn MD Primary Care Provider [phone] Allergies Active Allergy Reactions Criticality Noted Date [...] PM EDT Office Visit Internal Medicine - [address] [place] [address] Oliver Robins MD Primary hypertension (Primary Dx); Hypercholesterolemia; Migraine without aura and without status migrainosus, not intractable from Last 3 Months Immunizations Name Administration Dates Next Due [employer] SARS-CoV-2 COVID-19, mRNA, LNP-S, preservative free 02/08/2021 [...] situ OTHER SURGICAL HISTORY 12/11/2017 Right PROCEDURE: CA REVISION OF RECONSTRUCTED BREAST; COMMENT: right nipple [...] Procedure Name Priority Date/Time Associated Diagnosis Comments BASIC METABOLIC PANEL Routine 12/28/2024 11:17 AM EDT High blood pressure COLONOSCOPY Routine 07/08/2024 2:13 PM EST Screen for colon cancer HM DEPRESSION SCREENING Routine 02/06/2024 HEPATITIS C SCREENING Routine 02/06/2024 LIPID PANEL Routine 02/06/2024 HPV Routine 05/07/2022 HIV SCREENING Routine 07/23/2017 from Last 3 Months or Most Recently Relevant to Health Maintenance Results * (ABNORMAL) Basic metabolic panel (12/28/2024 11:17 AM EDT) Sodium 138 133 - 145 mmol/L LAB CHEMISTRY METHOD 12/28/2024 3:07 PM [facility] Potassium 3.8 3.5 - 5.5 mmol/L LAB CHEMISTRY METHOD 12/28/2024 3:07 PM [facility] Chloride 107 96 - 110 mmol/L LAB CHEMISTRY METHOD 12/28/2024 3:07 PM [facility] CO2 25 21 - 32 mmol/L LAB CHEMISTRY METHOD 12/28/2024 3:07 PM [facility] Anion Gap 6 3 - 11 LAB CHEMISTRY METHOD 12/28/2024 3:07 PM [facility] Glucose 102(H) 70 - 100 mg/dL LAB CHEMISTRY METHOD 12/28/2024 3:07 PM [facility] BUN 22 5 - 25 mg/dL LAB CHEMISTRY METHOD 12/28/2024 3:07 PM [facility] Creatinine 0.90 0.50 - 1.10 mg/dL LAB CHEMISTRY METHOD 12/28/2024 3:07 PM [facility] eGFR 77 >=60 mL/min/1. 73m2 LAB CHEMISTRY METHOD 12/28/2024 3:07 PM [facility] Comment:Calculation based on the Chronic Kidney Disease Epidemiology Collaboration (CKD-EPI) equation refit without adjustment for race. BUN/Creatinine Ratio 24.4 LAB CHEMISTRY METHOD 12/28/2024 3:07 PM EDT [facility] Calcium 9.5 8.5 - 10.5 mg/dL LAB CHEMISTRY METHOD 12/28/2024 3:07 PM EDT [facility] Blood Venous blood specimen / Unknown Venipuncture / Unknown 12/28/2024 11:17 AM EDT 12/28/2024 12:43 PM EDT Michael Man MD LAB BLOOD ORDERABL ES Final Result [facility] [address] [place] [address], * COLONOSCOPY Anesthesia - MAC; [facility] ENDOSCOPY (07/08/2024 2:13 PM EST) Anatomical Region Laterality Modality Endoscopy 07/08/2024 1:40 PM EST Impressions 07/08/2024 2:14 PM EST - Internal hemorrhoids. - The examination was otherwise normal. - No specimens collected. Recommendation: - Discharge patient to home. - Repeat colonoscopy in 10 years for screening purposes. Narrative 07/08/2024 2:14 PM EST [facility] GI Patient Name: Delphine Montez Procedure [...] verified by the physician, the nurse, the preassembler printed circuit board and the fiber optic technician in the pre-procedure area in the [...] malignant neoplasm of colon CPT copyright 2020 [employer]. All rights reserved. The codes documented in this report are preliminary and upon swine genetics researcher review may be revised to meet current compliance requirements. Chris Pittman MD 07/08/2024 2:14:43 PM This report has been signed electronically.Chris Pittman MD Number of Addenda: 0 Note Initiated On: 07/08/2024 1:40 PM Scope Withdrawal Time: 0 hours 6 minutes 4 seconds Scope In: 2:06:33 PM Scope Out: 2:14:45 PM Endoscopy Department at [facility] - [address] [place] [phone] Procedure Note Chris Pittman MD - 07/08/2024 [facility] GI Patient Name: Delphine Montez Procedure [...] the physician, the nurse, theanesthetist and the fiber optic technician in the pre-procedure area in the [...] for malignantneoplasm of colon CPT copyright 2020 [employer]. All rights reserved. The codes documented in this report are preliminary and upon swine genetics researcher reviewmay be revised to meet current compliance requirements. Chris Pittman MD 07/08/2024 2:14:43 PM This report has been signed electronically.Chris Pittman MD Number of Addenda: 0 Note Initiated On: 07/08/2024 1:40 PM Scope Withdrawal Time: 0 hours 6 minutes 4 seconds Scope In: 2:06:33 PM Scope Out: 2:14:45 PM Endoscopy Department at [address] [phone] IMPRESSION: - Internal hemorrhoids. - The examination was otherwise normal. - No specimens collected. Recommendation: - Discharge patient to home. - Repeat colonoscopy in 10 years for screening purposes. Chris Pittman MD GI~PROCEDURE ORDERABLES Fin al Result * Depression Screening (02/06/2024) [facility] Depression Screening Abstracted Historical Provider HEALTH MAINTENANCE Final Result * Hepatitis C Screening (02/06/2024) [facility] Hepatitis C Screening Abstracted Historical Provider HEALTH MAINTENANCE Final Result * (ABNORMAL) Lipid panel (02/06/2024) Pathologist [facility] LDL/HDL Ratio 4 0 - 4 Triglycerides 146 0 - 150 mg/dL Cholesterol 206(A) 0 - 200 mg/dL HDL 53 >=40 mg/dL LDL Cholesterol 124(A) 0 - 100 mg/dL Blood Venous blood specimen / Unknown Historical Provider LAB BLOOD ORDERABLES Liz l Result * Cervical Cancer Screening: HPV (05/07/2022) Cervical Cancer Screening: HPV Negative, Abstracted Historical Provider HEALTH MAINTENANCE Final Result * HIV Screening (07/23/2017) HIV Screening Abstracted Historical Provider HEALTH MAINTENANCE Final Result from Last 3 Months or Most Recently Relevant to Health Maintenance Insurance [facility] Care Teams Boot Liner Maker Relationship Specialty Start Date End Date Barbara Dunn MD [address] [place] [id number] PCP - General 09/15/23
== END 2025-03-31 10:14 | disposition home or self-care (01) ==
LOC: HO.HKA 09:54
PROVIDERS: PCP Internal Medicine; Visit Provider Internal Medicine Hypertension Specialist
DX: I10 Essential (primary) hypertension (principal)
CPT/HCPCS: 99214

== ENCOUNTER 2025-04-06 07:47 | Outpatient (REF) | payer OTHER, SELFPAY ==
--- NOTE | ~2025-04-06 | CT_ITS ---
EXAMINATION: CT ABDOMEN WITHOUT CONTRAST CLINICAL INFORMATION: Essential hypertension. COMPARISON: None available. TECHNIQUE: Contiguous axial thin section helical images of the abdomen were performed without contrast. The data set was reformatted in the coronal and sagittal planes and reviewed on an independent workstation. This CT examination was performed using dose optimization techniques as appropriate, variously including the following: *Automated exposure control *Adjustment of mA and/or kV according to patient size (this includes techniques or standardized protocols for targeted exams where dose is matched to indication/reason for exam; i.e. extremities or head) *Use of iterative reconstruction technique FINDINGS: LUNG BASES: Lung bases are clear. There is a left basal granuloma present. There are no effusions. LIVER, GALLBLADDER, BILIARY TREE: Unenhanced liver is normal without focal lesion. Gallbladder is distended without gallstone. No biliary dilatation. PANCREAS: Normal. SPLEEN: Normal. ADRENAL GLANDS AND KIDNEYS: Adrenal glands are normal with no appreciable lesion. Imaged kidneys are normal. BOWEL LOOPS: Normal. LYMPH NODES: Normal. VASCULAR: Unremarkable. BONES: Normal. CT/CT abdomen wo IV con IMPRESSION: Unremarkable examination. Electronically signed by: Chino Newton MD 04/06/2025 08:41 AM EDT
--- OUTSIDE RECORDS SUMMARY | 2025-04-06 07:50 | XMS_ITS | Clinical Summary ---
Author Organization [facility] Address [address] [place] [address] Care Team Providers Care Yarrow Gatherer Name Role Phone Oliver Robins MD Primary Care Provider Unavailab le Social History Tobacco Use Types Packs/Day Years Used Date Smoking Tobacco: Never Assessed Sex and Gender Information Value Date Recorded Sex Assigned at Not on file Gender Identity Not on file Sexual Orientation Not on file Plan of Treatment Not on file Care Teams Yarrow Gatherer Relationship Specialty Start Date End Date Oliver Robins MD PCP - General Internal Medicine 05/08/20
--- OUTSIDE RECORDS SUMMARY | 2025-04-06 07:50 | XMS_ITS | Clinical Summary ---
Author Organization [address] [place] [address] [place] [phone] Phone Care Team Providers Care Post Graduate Intern Name Role Phone Oliver Robins MD Primary Care Provider [phone] Allergies Active Allergy Reactions Criticality Noted Date [...] times a day. 60 each 3 03/28/2025 Active SUMAtriptan (IMITREX) 50 mg tablet Take [...] Encounters Date Type Department Care Team Description 03/31/2025 Telephone Internal Medicine [address] [phone] Barbara Dunn MD 03/28/2025 3:15 PM EDT Office Visit Internal Medicine [address] [phone] Oliver Robins MD Primary hypertension (Primary Dx); Hypercholesterolemia; Migraine without aura and without status migrainosus, not intractable from Last 3 Months Immunizations Name Administration Dates Next Due [employer] SARS-CoV-2 COVID-19, mRNA, LNP-S, preservative free 02/08/2021 [...] situ OTHER SURGICAL HISTORY 12/11/2017 Right PROCEDURE: [place] REVISION OF RECONSTRUCTED BREAST; COMMENT: right nipple [...] mmol/L LAB CHEMISTRY METHOD 12/28/2024 3:07 PM [facility] Potassium 3.8 3.5 - 5.5 mmol/L LAB CHEMISTRY METHOD 12/28/2024 3:07 PM [facility] Chloride 107 96 - 110 mmol/L LAB CHEMISTRY METHOD 12/28/2024 3:07 PM [facility] CO2 25 21 - 32 mmol/L LAB CHEMISTRY METHOD 12/28/2024 3:07 PM [facility] Anion Gap 6 3 - 11 LAB CHEMISTRY METHOD 12/28/2024 3:07 PM [facility] Glucose 102(H) 70 - 100 mg/dL LAB CHEMISTRY METHOD 12/28/2024 3:07 PM [facility] BUN 22 5 - 25 mg/dL LAB CHEMISTRY METHOD 12/28/2024 3:07 PM [facility] Creatinine 0.90 0.50 - 1.10 mg/dL LAB CHEMISTRY METHOD 12/28/2024 3:07 PM [facility] eGFR 77 >=60 mL/min/1. 73m2 LAB CHEMISTRY METHOD 12/28/2024 3:07 PM EDT [facility] Comment:Calculation based on the Chronic Kidney Disease Epidemiology Collaboration (CKD-EPI) equation refit without adjustment for race. BUN/Creatinine Ratio 24.4 LAB CHEMISTRY METHOD 12/28/2024 3:07 PM EDT [facility] Calcium 9.5 8.5 - 10.5 mg/dL LAB CHEMISTRY METHOD 12/28/2024 3:07 PM EDT [facility] Blood Venous blood specimen / Unknown Venipuncture / Unknown 12/28/2024 11:17 AM EDT 12/28/2024 12:43 PM EDT Michael Man MD LAB BLOOD ORDERABL ES Final Result [facility] [address] [place] [address], * COLONOSCOPY Anesthesia - MAC; [facility] ENDOSCOPY (07/08/2024 2:13 PM EST) Anatomical Region Laterality Modality Endoscopy 07/08/2024 1:40 PM EST Impressions 07/08/2024 2:14 PM EST - Internal hemorrhoids. - The examination was otherwise normal. - No specimens collected. Recommendation: - Discharge patient to home. - Repeat colonoscopy in 10 years for screening purposes. Narrative 07/08/2024 2:14 PM EST [facility] GI Patient Name: Delphine Montez Procedure [...] verified by the physician, the nurse, the home therapy teacher and the water pollution control technician in the pre-procedure area in the [...] malignant neoplasm of colon CPT copyright 2020 [employer]. All rights reserved. The codes documented in this report are preliminary and upon vessel scrapper review may be revised to meet current compliance requirements. Chris Pittman MD 07/08/2024 2:14:43 PM This report has been signed electronically.Chris Pittman MD Number of Addenda: 0 Note Initiated On: 07/08/2024 1:40 PM Scope Withdrawal Time: 0 hours 6 minutes 4 seconds Scope In: 2:06:33 PM Scope Out: 2:14:45 PM Endoscopy Department at [facility] - [address] [place] [phone] Procedure Note Chris Pittman MD - 07/08/2024 [facility] GI Patient Name: Delphine Montez Procedure [...] the physician, the nurse, theanesthetist and the water pollution control technician in the pre-procedure area in the [...] for malignantneoplasm of colon CPT copyright 2020 [employer]. All rights reserved. The codes documented in this report are preliminary and upon vessel scrapper reviewmay be revised to meet current compliance requirements. Chris Pittman MD 07/08/2024 2:14:43 PM This report has been signed electronically.Chris Pittman MD Number of Addenda: 0 Note Initiated On: 07/08/2024 1:40 PM Scope Withdrawal Time: 0 hours 6 minutes 4 seconds Scope In: 2:06:33 PM Scope Out: 2:14:45 PM Endoscopy Department at [facility] - [address] [place] [phone] IMPRESSION: - Internal hemorrhoids. - The examination was otherwise normal. - No specimens collected. Recommendation: - Discharge patient to home. - Repeat colonoscopy in 10 years for screening purposes. Chris Pittman MD GI~PROCEDURE ORDERABLES Fin al Result * Depression Screening (02/06/2024) [facility] Depression Screening Abstracted Historical Provider HEALTH MAINTENANCE Final Result * Hepatitis C Screening (02/06/2024) [facility] Hepatitis C Screening Abstracted Historical Provider HEALTH MAINTENANCE Final Result * (ABNORMAL) Lipid panel (02/06/2024) Pathologist [facility] LDL/HDL Ratio 4 0 - 4 Triglycerides 146 0 - 150 mg/dL Cholesterol 206(A) 0 - 200 mg/dL HDL 53 >=40 mg/dL LDL Cholesterol 124(A) 0 - 100 mg/dL Blood Venous blood specimen / Unknown Result [facility] Historical Provider LAB BLOOD ORDERABLES Liz l Result * Cervical Cancer Screening: HPV (05/07/2022) Pathologist [facility] Cervical Cancer Screening: HPV Negative, Abstracted Historical Provider HEALTH MAINTENANCE Final Result * HIV Screening (07/23/2017) Pathologist [facility] HIV Screening Abstracted [facility] Provider HEALTH MAINTENANCE Final Result from Last 3 Months or Most Recently Relevant to Health Maintenance Insurance [facility] [address] [place] [address] Care Teams Post Graduate Intern Relationship Specialty Start Date End Date Oliver Robins MD [address] [facility] [address] [place] [address] PCP - General Internal Medicine 03/31/25
== END 2025-04-06 07:48 | disposition home or self-care (01) ==
LOC: HO.CT 07:47
PROVIDERS: PCP Internal Medicine; Visit Provider Internal Medicine Hypertension Specialist
DX: I10 Essential (primary) hypertension (principal); E26.9 Hyperaldosteronism, unspecified
CPT/HCPCS: 74150

== ENCOUNTER → 2025-04-06 07:48 | Outpatient (BNV) | payer OTHER, SELFPAY | PROVIDERS: PCP Internal Medicine; Visit Provider Radiology Diagnostic Radiology | DX: I1A.0 Resistant hypertension (principal) | CPT/HCPCS: 74150 ==

== ENCOUNTER 2025-05-12 15:08 | Outpatient (REF) | payer OTHER, SELFPAY ==
[2025-05-12 18:28] LABS: Anion Gap 11 (12-20); Blood Urea Nitrogen 26 mg/dL (9-16); Calcium 9.4 mg/dL (8.4-10.2); Carbon Dioxide 27 mmol/L (22-29); Chloride 108 mmol/L (96-108); Estimated Glomerular Filt Rate 42; Potassium 3.5 mmol/L (3.3-5.1); Sodium 142 mmol/L (135-145)
--- OUTSIDE RECORDS SUMMARY | 2025-05-12 19:23 | XMS_ITS | Clinical Summary ---
Author Organization [facility] Address [address] [place] [address] Care Team Providers Care Lithographic Photographer Apprentice Name Role Phone Oliver Robins MD Primary Care Provider Unavailab le Social History Tobacco Use Types Packs/Day Years Used Date Smoking Tobacco: Never Assessed Sex and Gender Information Value Date Recorded Sex Assigned at Not on file Gender Identity Not on file Sexual Orientation Not on file Plan of Treatment Not on file Care Teams Lithographic Photographer Apprentice Relationship Specialty Start Date End Date Oliver Robins MD PCP - General Internal Medicine 05/08/20
== END 2025-05-12 15:09 | disposition home or self-care (01) ==
LOC: HO.HKASLDS 15:08
PROVIDERS: Visit Provider Internal Medicine Hypertension Specialist
DX: I10 Essential (primary) hypertension (principal)
CPT/HCPCS: 36415; 80048

== ENCOUNTER 2025-05-23 11:50 | Outpatient (AMB) | payer OTHER, SELFPAY ==
--- NOTE | 2025-05-23 11:53 | HO.NEPHOV ---
Vital Signs 05/23/25 11:54 Height 5 ft 1 in Weight 166 lb 2 oz BMI 31.4 BP 90/58 L Blood Pressure Location Rt brachial Position Sitting Intake Visit Reasons: 6 wk f/u w/ labs , r/s 05/12, confirmed Large Sheetfed Press Operator Required: No Accompanied by: Self / Same As Patient Allergies lobster Allergy (Verified 05/23/25 11:54) Unknown Medication List - Last Reconciled 05/23/25 by Michael Man MD amlodipine 10 mg PO DAILY atorvastatin 40 mg PO DAILY docusate sodium 100 mg PO DAILY epinephrine IM ferrous sulfate 325 mg PO DAILY labetalol 200 mg PO BID omeprazole 20 mg PO DAILY spironolactone 25 mg PO DAILY HPI Comments Details: Middle-aged woman with a history of hypertension since her mid 40s. Recently she was in [facility] Emergency room for chest pain and her blood pressure is elevated. Currently she is on amlodipine benazepril 5/20 a day along with labetalol 200 mg b.i.d.. She is here for further evaluation of hypertension. 12/28/24 Underwent work up as outlined Lab results are pending No hypokalemia or Alkalosis PA/PRA is pending underwent ABPM 01/27/25; BP remains sub optimal 03/31/25 The patient is a 55-year-old female presenting for a follow-up on hypertension management and kidney function assessment. The patient has been monitoring her blood pressure at home, reporting stable readings without any episodes of lightheadedness, nausea, or vomiting. She is currently on spironolactone and amlodipine for hypertension management. The patient experienced a COVID-19 infection, which led to the rescheduling of a previously planned CAT scan. The scan is now scheduled for the of this month. The patient reports inadequate water intake, which may be contributing to decreased kidney function. She has been advised to increase her fluid intake, especially in hot weather, to support kidney health. 05/23/2025. Overall she is doing well. Complains of fatigue Tolerating medications Underwent CT scan has outlined [facility] Medical History (Updated 01/27/25 @ 15:00 by Michael Man MD) Migraine headache Insomnia Hyperlipidemia Gastroesophageal reflux disease Anemia Hypertension Enlarged uterus Surgical History Hx of tubal ligation H/O breast biopsy H/O breast surgery History of reconstruction of right breast S/P lumpectomy, right breast History of appendectomy Family History Father Coronary artery disease Maternal Grandmother Lung cancer Social History Household Members: Significant Other Housing: House Alcohol intake: never Patient Tobacco Use Status: Never used Tobacco service: No Current occupational status: employed Physical Exam Vital Signs: Last Vital Signs BP 90/58 L 05/23/25 11:54 BMI result Body Mass Index 31.4 Comfortable Neck supple no JVD. Lungs entry equal no rales. Heart S1-S2 heard no gallop or rub. Abdomen soft nontender. Neuro alert awake oriented. No asterixis. Extremities no edema. Results Reviewed Results Reviewed: Mar 2025 ADRENAL GLANDS AND KIDNEYS: Adrenal glands are normal with no appreciable lesion. Imaged kidneys are normal. Nephrology Results: Sodium, (135-145) 142 mmol/L 05/12/25 Potassium, (3.3-5.1) 3.5 mmol/L 05/12/25 Chloride, (96-108) 108 mmol/L 05/12/25 Carbon Dioxide, (22-29) 27 mmol/L 05/12/25 BUN, (9-16) 26 mg/dL H 05/12/25 Creatinine, (0.5-1.4) 1.32 mg/dL 05/12/25 Calcium, (8.4-10.2) 9.4 mg/dL 05/12/25 Urine Protein, (Neg-Trace) Trace mg/dL 03/28/25 Urine Creatinine 432.83 mg/dL 03/28/25 Assessment & Plan Assessment & Plan (1) Hypertension: Code(s): I10 - Essential (primary) hypertension Category: Medical Plan Middle aged woman with resistant hypertension. She had an episode of hypokalemia. With mild alkalosis ,we should rule out hyperaldosteronism. 24 hr ABPM shows ABPM stage 1 HTN Non di[place] level [address] scan of adrenals were unremarkable. Blood pressure is rather low today. Decrease labetalol from 200 mg b.i.d. 200 mg b.i.d. Keep Spironolactone 25 mgQD Encouraged her to stay on low-sodium diet . Orders: Orders Basic Metabolic Panel 2 Months I10 - Essential (primary) hypertension Medications: Changed From labetalol 100 mg PO BID To labetalol 100 mg PO BID 180 tabs 1RF Coding Level of Care Code Est Pt Level 4 (20099) Diagnoses Hypertension I10
[2025-05-23 11:54] VITALS: BP 90/58; BMI 31.4
--- OUTSIDE RECORDS SUMMARY | 2025-05-23 14:23 | XMS_ITS | Encounter Summary ---
Author Organization [facility] Address [address] [place] [address] Care Team Providers Care Sole Dyer Name Role Phone Oliver Robins MD Primary Care Provider [phone] Encounter Details Date Type Department Care Team ([facility] st Contact Info) Description 03/31/2025 Telephone Internal Medicine [facility] [address] [phone] Barbara Dunn MD [address] [place] [phone] Social History Tobacco Use Types Packs/Day Years Used Date Smoking Tobacco: Never Smokeless Tobacco: Never Alcohol Use Standard Drinks/Week Comments No 0 (1 standard drink = 0.6 oz pur e alcohol) Interpersonal Safety Answer Date Record ed Physical Abuse Unrecognized value 07/08/2024 Verbal Abuse Unrecognized value 07/08/2024 Comments No Sex and Gender Information Value Date Recorded Sex Assigned at Not on file Legal Sex Female 3:03 PM EST Gender Identity Not on file Sexual Orientation Not on file documented as of this encounter Plan of Treatment Not on file documented as of this encounter Visit Diagnoses Not on filedocumented in this encounter Care Teams Sole Dyer Relationship Specialty Start Date End Date Oliver Robins MD [address] [phone] PCP - General Internal Medicine 03/31/25 documented as of this encounter
--- OUTSIDE RECORDS SUMMARY | 2025-05-23 14:23 | XMS_ITS | Clinical Summary ---
Author Organization [address] [place] [address] [place] [phone] Phone Care Team Providers Care Customer Service Teller Name Role Phone Oliver Robins MD Primary Care Provider [phone] Allergies Active Allergy Reactions Criticality Noted Date [...] Care Team Description 03/31/2025 Telephone Internal Medicine [address] [phone] Barbara Dunn MD 03/28/2025 3:15 PM EDT Office Visit Internal Medicine [address] [phone] Oliver Robins MD Primary hypertension (Primary Dx); Hypercholesterolemia; Migraine without aura and without status migrainosus, not intractable from Last 3 Months Immunizations Immunization Administration Dates Next Due [employer] SARS-CoV-2 COVID-19, mRNA, LNP-S, preservative free 02/08/2021 [...] situ OTHER SURGICAL HISTORY 12/11/2017 Right PROCEDURE: AR REVISION OF RECONSTRUCTED BREAST; COMMENT: right nipple [...] 2021 Social Influencers of Health Screening 07/17/2022 Depression Screening 08/18/2024 02/06/2024 COVID-19 Vaccine ( - season) 2025 09/13/2021, 02/08/2021, 01/18/2021 Influenza Vaccine (#1) 2025 05/09/2022 Hypertension/CHF/CAD Annual BMP Blood Test 12/28/2025 12/28/2024, 11/19/2024, 06/07/2024, Additional history exists Cervical Cancer Screening: HPV 05/07/2027 05/07/2022 Cholesterol Screening (Lipid Panel) 02/05/2029 02/06/2024, 02/06/2024 DTaP,Tdap,and Td Vaccines (2 - Td or Tdap) 02/05/2034 02/06/2024 Colorectal Cancer Screening: Colonoscopy 07/08/2034 07/08/2024 RSV Immunization Adult Patients (1 - 1-dose 75+ series) 2046 HIV Screening Completed 07/23/2017 Hepatitis C Screening [...] Procedure Name Priority Date/Time Associated Diagnosis Comments EXTERNAL CT REPORT 04/06/2025 BASIC METABOLIC PANEL Routine 12/28/2024 11:17 AM EDT High blood pressure COLONOSCOPY Routine 07/08/2024 2:13 PM EST Screen for colon cancer DEPRESSION SCREENING Routine 02/06/2024 HEPATITIS C SCREENING Routine 02/06/2024 LIPID PANEL Routine 02/06/2024 HM HPV Routine 05/07/2022 HIV SCREENING Routine 07/23/2017 from Last 3 Months or Most Recently Relevant to Health Maintenance Results * External CT Report (04/06/2025) Anatomical Region Laterality Modality Computed Tomogra phy Provider [facility] IM CT PROCEDURES Final Result * (ABNORMAL) Basic metabolic panel (12/28/2024 11:17 AM EDT) Sodium 138 133 - 145 mmol/L LAB CHEMISTRY METHOD 12/28/2024 3:[address] [facility] Potassium 3.8 3.5 - 5.5 mmol/L LAB CHEMISTRY METHOD 12/28/2024 3:[address] [facility] Chloride 107 96 - 110 mmol/L LAB CHEMISTRY METHOD 12/28/2024 3:[address] [facility] CO2 25 21 - 32 mmol/L LAB CHEMISTRY METHOD 12/28/2024 3:[address] [facility] Anion Gap 6 3 - 11 LAB CHEMISTRY METHOD 12/28/2024 3:[address] [facility] Glucose 102(H) 70 - 100 mg/dL LAB CHEMISTRY METHOD 12/28/2024 3:[address] [facility] BUN 22 5 - 25 mg/dL LAB CHEMISTRY METHOD 12/28/2024 3:07 PM EDT [facility] Creatinine 0.90 0.50 - 1.10 mg/dL LAB CHEMISTRY METHOD 12/28/2024 3:07 PM EDT [facility] eGFR 77 >=60 mL/min/1. 73m2 LAB CHEMISTRY METHOD 12/28/2024 3:07 PM EDT [facility] Comment:Calculation based on the Chronic Kidney Disease Epidemiology Collaboration (CKD-EPI) equation refit without adjustment for race. BUN/Creatinine Ratio 24.4 LAB CHEMISTRY METHOD 12/28/2024 3:07 PM EDT [facility] Calcium 9.5 8.5 - 10.5 mg/dL LAB CHEMISTRY METHOD 12/28/2024 3:07 PM EDT [facility] Blood Venous blood specimen / Unknown Venipuncture / Unknown 12/28/2024 11:17 AM EDT 12/28/2024 12:43 PM EDT Michael Man MD LAB BLOOD ORDERABL ES Final Result [facility] [address] [place] [address], * COLONOSCOPY Anesthesia - MAC; [facility] ENDOSCOPY (07/08/2024 2:13 PM EST) Anatomical Region Laterality Modality Endoscopy 07/08/2024 1:40 PM EST Impressions 07/08/2024 2:14 PM EST - Internal hemorrhoids. - The examination was otherwise normal. - No specimens collected. Recommendation: - Discharge patient to home. - Repeat colonoscopy in 10 years for screening purposes. Narrative 07/08/2024 2:14 PM EST [facility] GI Patient Name: Delphine Montez Procedure [...] verified by the physician, the nurse, the shelf drier operator and the orthotics technician in the pre-procedure area in the [...] malignant neoplasm of colon CPT copyright 2020 [employer]. All rights reserved. The codes documented in this report are preliminary and upon psychological operations officer review may be revised to meet current compliance requirements. Chris Pittman MD 07/08/2024 2:14:43 PM This report has been signed electronically.Chris Pittman MD Number of Addenda: 0 Note Initiated On: 07/08/2024 1:40 PM Scope Withdrawal Time: 0 hours 6 minutes 4 seconds Scope In: 2:06:33 PM Scope Out: 2:14:45 PM Endoscopy Department at [facility] - [address] [place] [phone] Procedure Note Chris Pittman MD - 07/08/2024 [facility] GI Patient Name: Delphine Montez Procedure [...] the physician, the nurse, theanesthetist and the orthotics technician in the pre-procedure area in the [...] for malignantneoplasm of colon CPT copyright 2020 [employer]. All rights reserved. The codes documented in this report are preliminary and upon psychological operations officer reviewmay be revised to meet current compliance requirements. Chris Pittman MD 07/08/2024 2:14:43 PM This report has been signed electronically.Chris Pittman MD Number of Addenda: 0 Note Initiated On: 07/08/2024 1:40 PM Scope Withdrawal Time: 0 hours 6 minutes 4 seconds Scope In: 2:06:33 PM Scope Out: 2:14:45 PM Endoscopy Department at [facility] - [address] [place] [phone] IMPRESSION: - Internal hemorrhoids. - The examination was otherwise normal. - No specimens collected. Recommendation: - Discharge patient to home. - Repeat colonoscopy in 10 years for screening purposes. us Chris Pittman MD GI~PROCEDURE ORDERABLES Fin al Result * Hm Depression Screening (02/06/2024) Pathologist [facility] Depression Screening Abstracted [facility] Provider HEALTH MAINTENANCE Final Result * Hepatitis C Screening (02/06/2024) [facility] Hepatitis C Screening Abstracted [facility] Provider HEALTH MAINTENANCE Final Result * (ABNORMAL) Lipid panel (02/06/2024) [facility] LDL/HDL Ratio 4 0 - 4 Triglycerides 146 0 - 150 mg/dL Cholesterol 206(A) 0 - 200 mg/dL HDL 53 >=40 mg/dL LDL Cholesterol 124(A) 0 - 100 mg/dL Blood Venous blood specimen / Unknown Result [facility] Provider LAB BLOOD ORDERABLES Liz l Result * Cervical Cancer Screening: HPV (05/07/2022) [facility] Cervical Cancer Screening: HPV Negative, Abstracted Result [facility] Provider HEALTH MAINTENANCE Final Result * HIV Screening (07/23/2017) [facility] HIV Screening Abstracted Result [facility] Provider HEALTH MAINTENANCE Final Result from Last 3 Months or Most Recently Relevant to Health Maintenance Insurance [facility] Care Teams Customer Service Teller Relationship Specialty Start Date End Date Oliver Robins MD [address] [place] [id number] PCP - General Internal Medicine 03/31/25
--- OUTSIDE RECORDS SUMMARY | 2025-05-23 14:23 | XMS_ITS | Clinical Summary ---
Author Organization [facility] Address [address] [place] [address] Care Team Providers Care Instructor Extension Work Name Role Phone Oliver Robins MD Primary Care Provider Unavailab le Social History Tobacco Use Types Packs/Day Years Used Date Smoking Tobacco: Never Assessed Sex and Gender Information Value Date Recorded Sex Assigned at Not on file Gender Identity Not on file Sexual Orientation Not on file Plan of Treatment Not on file Care Teams Instructor Extension Work Relationship Specialty Start Date End Date Oliver Robins MD PCP - General Internal Medicine 05/08/20
== END 2025-05-23 12:04 | disposition home or self-care (01) ==
LOC: HO.HKA 11:51
PROVIDERS: PCP Internal Medicine; Visit Provider Internal Medicine Hypertension Specialist
DX: I10 Essential (primary) hypertension (principal)
CPT/HCPCS: 99214

== ENCOUNTER 2025-08-02 16:10 | Outpatient (REF) | payer OTHER, SELFPAY ==
[2025-08-02 18:34] LABS: Anion Gap 10 (12-20); Blood Urea Nitrogen 26 mg/dL (9-16); Calcium 9.6 mg/dL (8.4-10.2); Carbon Dioxide 26 mmol/L (22-29); Chloride 108 mmol/L (96-108); Estimated Glomerular Filt Rate 53; Potassium 3.7 mmol/L (3.3-5.1); Sodium 140 mmol/L (135-145)
--- OUTSIDE RECORDS SUMMARY | 2025-08-02 20:09 | XMS_ITS | Encounter Summary ---
Author Organization [facility] Address [address] [place] [address] Care Team Providers Care Peer Health Promoter Name Role Phone Oliver Robins MD Primary Care Provider [phone] Encounter Details Date Type Department Care Team ([facility] st Contact Info) Description 03/31/2025 Telephone Internal Medicine [facility] [address] [phone] Barbara Dunn MD [address] [place] [phone] Social History Tobacco Use Types Packs/Day Years [...] on filedocumented in this encounter Care Teams Peer Health Promoter Relationship Specialty Start Date End Date Oliver Robins MD [address] [address] PCP - General Internal Medicine 03/31/25 documented as of this encounter
--- OUTSIDE RECORDS SUMMARY | 2025-08-02 20:09 | XMS_ITS | Clinical Summary ---
Author Organization [address] [place] [address] [place] [phone] Phone Care Team Providers Care Devulcanizer Operator Name Role Phone Oliver Robins MD Primary Care Provider [phone] Allergies Active Allergy Reactions Criticality Noted Date [...] 1 Capsule by mouth daily. 01/24/2023 Active EPINEPHrine (EpiPen 2-Gabriel) 0.3 mg/0.3 mL [...] Encounters Date Type Department Care Team Description 05/30/2025 Telephone [facility] Cardiology [facility] [address] [facility] [address] [place] [phone] Oliver Robins MD from Last 3 Months Immunizations Immunization Administration Dates Next Due Pfizer SARS-CoV-2 COVID-19, [...] situ OTHER SURGICAL HISTORY 12/11/2017 Right PROCEDURE: [place] REVISION OF RECONSTRUCTED BREAST; COMMENT: right nipple [...] on file Sexual Orientation Not on file Last Filed Vital Signs Vital Sign Reading [...] Last Done Comments Breast Cancer Screening 1971 Drug Screen 1971 Non-Opioid Controlled Substance Agreement 1971 Hepatitis B Vaccines (1 of 3 - 19+ 3-dose series) 1990 Pneumococcal Vaccine: 50+ Years (1 of 1 - PCV) 2021 Zoster Vaccines (1 of 2) 2021 Social Influencers of Health Screening 07/17/2022 Depression Screening 08/18/2024 02/06/2024 COVID-19 Vaccine ( season) 2025 09/13/2021, 02/08/2021, 01/18/2021 Influenza Vaccine [...] Basic metabolic panel (12/28/2024 11:17 AM EDT) Pathologist [facility] Sodium 138 133 - 145 mmol/L LAB CHEMISTRY METHOD 12/28/2024 3:07 PM [facility] Potassium 3.8 3.5 - 5.5 mmol/L LAB CHEMISTRY METHOD 12/28/2024 3:07 PM [facility] Chloride 107 96 - 110 mmol/L LAB CHEMISTRY METHOD 12/28/2024 3:07 PM [facility] CO2 25 21 - 32 mmol/L LAB CHEMISTRY METHOD 12/28/2024 3:07 PM [facility] Anion Gap 6 3 - 11 LAB CHEMISTRY METHOD 12/28/2024 3:07 PM [facility] Glucose 102(H) 70 - 100 mg/dL LAB CHEMISTRY METHOD 12/28/2024 3:07 PM [facility] BUN 22 5 - 25 mg/dL LAB CHEMISTRY METHOD 12/28/2024 3:07 PM [facility] Creatinine 0.90 0.50 - 1.10 mg/dL LAB CHEMISTRY METHOD 12/28/2024 3:07 PM [facility] eGFR 77 >=60 mL/min/1. 73m2 LAB CHEMISTRY METHOD 12/28/2024 3:07 PM [facility] Comment:Calculation based on the Chronic Kidney Disease Epidemiology Collaboration (CKD-EPI) equation refit without adjustment for race. BUN/Creatinine Ratio 24.4 LAB CHEMISTRY METHOD 12/28/2024 3:07 PM [facility] Calcium 9.5 8.5 - 10.5 mg/dL LAB CHEMISTRY METHOD 12/28/2024 3:[address] [facility] Blood Venous blood specimen / Unknown Venipuncture / Unknown 12/28/2024 11:17 AM EDT 12/28/2024 12:43 PM EDT Michael Man MD LAB BLOOD ORDERABL ES Final Result [facility] ([facility]) [facility] [address] [place] [address], [place] [phone] * COLONOSCOPY Anesthesia - MAC; [facility] ENDOSCOPY (07/08/2024 2:13 PM EST) Anatomical [...] verified by the physician, the nurse, the director sales support and the nitriles lab technician in the pre-procedure area in the [...] malignant neoplasm of colon CPT copyright 2020 [employer]. All rights reserved. The codes documented in this report are preliminary and upon glass lathe operator review may be revised to meet current compliance requirements. Chris Pittman MD 07/08/2024 2:14:43 PM This report has been signed electronically.Chris Pittman MD Number of Addenda: 0 Note Initiated On: 07/08/2024 1:40 PM Scope Withdrawal Time: 0 hours 6 minutes 4 seconds Scope In: 2:06:33 PM Scope Out: 2:14:45 PM Endoscopy Department at [facility] - [address] [place] [phone] Procedure Note Chris Pittman MD - 07/08/2024 [...] the physician, the nurse, theanesthetist and the nitriles lab technician in the pre-procedure area in the [...] for malignantneoplasm of colon CPT copyright 2020 [employer]. All rights reserved. The codes documented in this report are preliminary and upon glass lathe operator reviewmay be revised to meet current compliance requirements. Chris Pittman MD 07/08/2024 2:14:43 PM This report has been signed electronically.Chris Pittman MD Number of Addenda: 0 Note Initiated On: 07/08/2024 1:40 PM Scope Withdrawal Time: 0 hours 6 minutes 4 seconds Scope In: 2:06:33 PM Scope Out: 2:14:45 PM Endoscopy Department at [address] [phone] IMPRESSION: - Internal hemorrhoids. - The examination was otherwise normal. - No specimens collected. Recommendation: - Discharge patient to home. - Repeat colonoscopy in 10 years for screening purposes. Chris Pittman MD GI~PROCEDURE ORDERABLES Fin al Result * Depression Screening (02/06/2024) Pathologist [facility] Depression Screening Abstracted Historical Provider HEALTH MAINTENANCE Final Result * Hepatitis C Screening (02/06/2024) Pathologist [facility] Hepatitis C Screening Abstracted Historical Provider HEALTH [facility] Final Result * (ABNORMAL) Lipid panel (02/06/2024) Pathologist [facility] LDL/HDL Ratio 4 0 - 4 Triglycerides 146 0 - 150 mg/dL Cholesterol 206(A) 0 - 200 mg/dL HDL 53 >=40 mg/dL LDL Cholesterol 124(A) 0 - 100 mg/dL Blood Venous blood specimen / Unknown Historical Provider LAB BLOOD ORDERABLES Liz l Result * Cervical Cancer Screening: HPV (05/07/2022) Pathologist [facility] Cervical Cancer Screening: HPV Negative, Abstracted Historical Provider HEALTH MAINTENANCE Final Result * HIV Screening (07/23/2017) [facility] HIV Screening Abstracted Historical Provider HEALTH MAINTENANCE Final Result from Last 3 Months or Most Recently Relevant to Health Maintenance Insurance [facility] [address] [place] [address] Care Teams Devulcanizer Operator Relationship Specialty Start Date End Date Oliver Robins MD 175 [facility] [address] [place] [address] PCP - General Internal Medicine 03/31/25
--- OUTSIDE RECORDS SUMMARY | 2025-08-02 20:09 | XMS_ITS | Clinical Summary ---
Author Organization [facility] Prior to 01/15/25 Address [address] [place] [address] Care Team Providers Care Automotive Service Consultant Name Role Phone Oliver Robins MD Primary Care Provider Unavailab le Social History Tobacco Use Types Packs/Day Years Used Date Smoking Tobacco: Never Assessed Sex and Gender Information Value Date Recorded Sex Assigned at Not on file Gender Identity Not on file Sexual Orientation Not on file Plan of Treatment Not on file Care Teams Automotive Service Consultant Relationship Specialty Start Date End Date Oliver Robins MD PCP - General Internal Medicine 05/08/20
== END 2025-08-02 16:11 | disposition home or self-care (01) ==
LOC: HO.HKASLDS 16:10
PROVIDERS: PCP Internal Medicine; Visit Provider Internal Medicine Hypertension Specialist
DX: I10 Essential (primary) hypertension (principal)
CPT/HCPCS: 36415; 80048

== ENCOUNTER 2025-08-04 14:44 | Outpatient (AMB) | payer OTHER, SELFPAY ==
[2025-08-04 14:48] VITALS: BP 114/74; PULSE 90; O2SAT 94; BMI 31.6
--- NOTE | 2025-08-04 14:48 | HO.NEPHOV ---
Vital Signs 08/04/25 14:48 Height 5 ft 1 in Weight 167 lb BMI 31.6 BP 114/74 Blood Pressure Location Rt brachial Position Sitting Pulse 90 Pulse Source Pulse Oximeter Pulse Oximetry (%) 94 Oxygen Delivery Method Room Air Intake Visit Reasons: 2mon f/u w/labs-LVM Manufacturing Technology Analyst Required: No Manufacturing Technology Analyst Services: Manufacturing Technology Analyst Offered & Declined (Patient understands Hebrew ) Accompanied by: Self / Same As Patient Allergies lobster Allergy (Verified 08/04/25 14:52) Unknown Medication List - Last Reconciled 08/04/25 by Michael Man MD amlodipine 10 mg PO DAILY atorvastatin 40 mg PO DAILY docusate sodium 100 mg PO DAILY epinephrine IM ferrous sulfate 325 mg PO DAILY labetalol 100 mg PO BID omeprazole 20 mg PO DAILY spironolactone 25 mg PO DAILY topiramate 50 mg PO BID PRN HPI Comments Details: History of Present Illness The patient is a 55-year-old female presenting for a follow-up visit for management of hypertension. She has a history of hypertension with a non-dipping status confirmed on ambulatory blood pressure monitoring. Her blood pressure is currently well-controlled at home with readings of 120-130/80 mmHg. She denies any lightheadedness, dizziness, or swelling in her legs. Her medications were previously adjusted due to low blood pressure readings, such as 90/58 mmHg. Her current regimen of amlodipine 10 mg, labetalol 100 mg twice daily, and spironolactone 25 mg is effective. Previous investigations for her hypertension included an aldosterone level of 18, a direct renin level of 3.3, and an unremarkable CT scan of the adrenals. Recent lab work showed an improvement in her kidney function. Results - Labs - Kidney function: 53%, improved from 41-42%. - Potassium: 3.7. - Past aldosterone: 18. - Past direct renin: 3.3. - Imaging - Past CT adrenals: Unremarkable. - Tests - Past Ambulatory Blood Pressure Monitoring (ABP): Revealed a non-dipping status. [facility] Medical History (Updated 01/27/25 @ 15:00 by Michael Man MD) Migraine headache Insomnia Hyperlipidemia Gastroesophageal reflux disease Anemia Hypertension Enlarged uterus Surgical History Hx of tubal ligation H/O breast biopsy H/O breast surgery History of reconstruction of right breast S/P lumpectomy, right breast History of appendectomy Family History Father Coronary artery disease Maternal Grandmother Lung cancer Social History Household Members: Significant Other Housing: House Alcohol intake: never Patient Tobacco Use Status: Never used Tobacco service: No Current occupational status: employed Physical Exam Exam Exam: Physical Exam General: Awake. Comfortable. HENT: Neck supple. Mucosa moist. Pulmonary: Lungs aeration equal. No rales. Cardiology: Heart S1-S2 heard. No gallop. Abdomen: Soft. Non tender. Bowel sounds normal. Neurologic: No involuntary movements. No myoclonus. Extremities: No edema. No rash. Vital Signs: Last Vital Signs Pulse 90 08/04/25 14:48 BP 114/74 08/04/25 14:48 Pulse Ox 94 08/04/25 14:48 Oxygen Delivery Method Room Air 08/04/25 14:48 BMI result Body Mass Index 31.6 Results Reviewed Nephrology Results: Sodium, (135-145) 140 mmol/L 08/02/25 Potassium, (3.3-5.1) 3.7 mmol/L 08/02/25 Chloride, (96-108) 108 mmol/L 08/02/25 Carbon Dioxide, (22-29) 26 mmol/L 08/02/25 BUN, (9-16) 26 mg/dL H 08/02/25 Creatinine, (0.5-1.4) 1.07 mg/dL 08/02/25 Calcium, (8.4-10.2) 9.6 mg/dL 08/02/25 Urine Protein, (Neg-Trace) Trace mg/dL 03/28/25 Urine Creatinine 432.83 mg/dL 03/28/25 Assessment & Plan Assessment & Plan (1) Hypertension: Code(s): I10 - Essential (primary) hypertension Category: Medical Plan Plan 1. Hypertension - The patient's hypertension is well-controlled on her current medication regimen, with reported home blood pressure readings of 120/80 mmHg. - No changes will be made to her medications, and she will continue amlodipine 10 mg, labetalol 100 mg twice daily, and spironolactone 25 mg. - She was advised to reduce the frequency of her blood pressure monitoring from twice daily to a few times a week, unless she feels different. - She was instructed to call if her blood pressure is too high or too low for an earlier appointment. - A follow-up is scheduled in six months. 2. Chronic Kidney Disease - Recent lab results indicate an improvement in kidney function, egfr increasing from 41-42ml/mt to 53 ml/mt - Her potassium level is 3.7, which is a good level while taking spironolactone. - No changes will be made to her current management. Orders: Orders Basic Metabolic Panel 6 Months I10 - Essential (primary) hypertension Coding Level of Care Code Est Pt Level 4 (17119) Diagnoses Hypertension I10
--- OUTSIDE RECORDS SUMMARY | 2025-08-04 18:52 | XMS_ITS | Clinical Summary ---
Author Organization [address] [place] [address] [place] [phone] Phone Care Team Providers Care Flight Superintendent Name Role Phone Oliver Robins MD Primary Care Provider [phone] Allergies Active Allergy Reactions Criticality Noted Date [...] Type Department Care Team Description 05/30/2025 Telephone [facility] Cardiology [facility] [address] [place] [address] Oliver Robins MD from Last [...] situ OTHER SURGICAL HISTORY 12/11/2017 Right PROCEDURE: NM REVISION OF RECONSTRUCTED BREAST; COMMENT: right nipple [...] metabolic panel (12/28/2024 11:17 AM EDT) Pathologist [facility] Sodium 138 133 - 145 mmol/L LAB CHEMISTRY METHOD 12/28/2024 3:07 PM [facility] Potassium 3.8 3.5 - 5.5 mmol/L LAB CHEMISTRY METHOD 12/28/2024 3:07 PM [facility] Chloride 107 96 - 110 mmol/L LAB CHEMISTRY METHOD 12/28/2024 3:07 PM [facility] CO2 25 21 - 32 mmol/L LAB CHEMISTRY METHOD 12/28/2024 3:07 PM [facility] Anion Gap 6 3 - 11 LAB CHEMISTRY METHOD 12/28/2024 3:07 PM [facility] Glucose 102(H) 70 - 100 mg/dL LAB CHEMISTRY METHOD 12/28/2024 3:07 PM [facility] BUN 22 5 - 25 mg/dL LAB CHEMISTRY METHOD 12/28/2024 3:07 PM [facility] Creatinine 0.90 0.50 - 1.10 mg/dL LAB CHEMISTRY METHOD 12/28/2024 3:07 PM [facility] eGFR 77 >=60 mL/min/1. 73m2 LAB CHEMISTRY METHOD 12/28/2024 3:07 PM [facility] Comment:Calculation based on the Chronic Kidney Disease Epidemiology Collaboration (CKD-EPI) equation refit without adjustment for race. BUN/Creatinine Ratio 24.4 LAB CHEMISTRY METHOD 12/28/2024 3:07 PM [facility] Calcium 9.5 8.5 - 10.5 mg/dL LAB CHEMISTRY METHOD 12/28/2024 3:07 PM EDT [facility] Blood Venous blood specimen / Unknown Venipuncture / Unknown 12/28/2024 11:17 AM EDT 12/28/2024 12:43 PM EDT Michael Man MD LAB BLOOD ORDERABL ES Final Result [facility] [address] [place] [address], [place] [phone] * COLONOSCOPY Anesthesia - MAC; [facility] ENDOSCOPY (07/08/2024 2:13 PM EST) Anatomical Region Laterality Modality Endoscopy 07/08/2024 1:40 PM EST Impressions 07/08/2024 2:14 PM EST - Internal hemorrhoids. - The examination was otherwise normal. - No specimens collected. Recommendation: - Discharge patient to home. - Repeat colonoscopy in 10 years for screening purposes. Narrative 07/08/2024 2:[address] [facility] GI Patient Name: Delphine Montez [...] verified by the physician, the nurse, the architectural engineering teacher and the endoscope technician in the pre-procedure area in the [...] malignant neoplasm of colon CPT copyright 2020 [employer]. All rights reserved. The codes documented in this report are preliminary and upon public safety director review may be revised to meet current compliance requirements. Chris Pittman MD 07/08/2024 2:14:43 PM This report has been signed electronically.Chris Pittman MD Number of Addenda: 0 Note Initiated On: 07/08/2024 1:40 PM Scope Withdrawal Time: 0 hours 6 minutes 4 seconds Scope In: 2:06:33 PM Scope Out: 2:14:45 PM Endoscopy Department at [facility] - [address] [place] [phone] Procedure Note Chris Pittman MD - 07/08/[address] [facility] GI Patient Name: Delphine Montez [...] the physician, the nurse, theanesthetist and the endoscope technician in the pre-procedure area in the [...] for malignantneoplasm of colon CPT copyright 2020 [employer]. All rights reserved. The codes documented in this report are preliminary and upon public safety director reviewmay be revised to meet current compliance requirements. Chris Pittman MD 07/08/2024 2:14:43 PM This report has been signed electronically.Chris Pittman MD Number of Addenda: 0 Note Initiated On: 07/08/2024 1:40 PM Scope Withdrawal Time: 0 hours 6 minutes 4 seconds Scope In: 2:06:33 PM Scope Out: 2:14:45 PM Endoscopy Department at [address] [phone] IMPRESSION: - Internal hemorrhoids. - The examination was otherwise normal. - No specimens collected. Recommendation: - Discharge patient to home. - Repeat colonoscopy in 10 years for screening purposes. Chris Pittman MD GI~PROCEDURE ORDERABLES Fin al Result * Depression Screening (02/06/2024) Pathologist [facility] Depression Screening Abstracted Historical Provider HEALTH MAINTENANCE Final Result * Hepatitis C Screening (02/06/2024) Pathologist [facility] Hepatitis C Screening Abstracted Historical Provider [facility]ALTH [facility] Final Result * (ABNORMAL) Lipid panel (02/06/2024) Pathologist [facility] LDL/HDL Ratio 4 0 - 4 Triglycerides 146 0 - 150 mg/dL Cholesterol 206(A) 0 - 200 mg/dL HDL 53 >=40 mg/dL LDL Cholesterol 124(A) 0 - 100 mg/dL Blood Venous blood specimen / Unknown Historical Provider LAB BLOOD ORDERABLES Liz l Result * Cervical Cancer Screening: HPV (05/07/2022) Pathologist [facility] Cervical Cancer Screening: HPV Negative, Abstracted Historical Provider HEALTH MAINTENANCE Final Result * HIV Screening (07/23/2017) [facility] HIV Screening Abstracted Historical Provider HEALTH MAINTENANCE Final Result from Last 3 Months or Most Recently Relevant to Health Maintenance Insurance [facility] [address] [place] [address] Care Teams Flight Superintendent Relationship Specialty Start Date End Date Oliver Robins MD [address] [facility] [address] [place] [address] PCP - General Internal Medicine 03/31/25
--- OUTSIDE RECORDS SUMMARY | 2025-08-04 18:52 | XMS_ITS | Clinical Summary ---
Author Organization [facility] Prior to 01/15/25 Address [address] [place] [address] Care Team Providers Care Laboratory Scientist Name Role Phone Oliver Robins MD Primary Care Provider Unavailab le Social History Tobacco Use Types Packs/Day Years Used Date Smoking Tobacco: Never Assessed Sex and Gender Information Value Date Recorded Sex Assigned at Not on file Gender Identity Not on file Sexual Orientation Not on file Plan of Treatment Not on file Care Teams Laboratory Scientist Relationship Specialty Start Date End Date Oliver Robins MD PCP - General Internal Medicine 05/08/20
--- OUTSIDE RECORDS SUMMARY | 2025-08-04 18:52 | XMS_ITS | Encounter Summary ---
Author Organization [facility] Address [address] [place] [address] Care Team Providers Care Asphalt Coater Name Role Phone Oliver Robins MD Primary Care Provider [phone] Encounter Details Date Type Department Care Team ([facility] st Contact Info) Description 03/31/2025 Telephone Internal Medicine [facility] [address] [phone] Barbara Dunn MD [address] [place] [phone] Social History Tobacco Use Types Packs/Day Years [...] on filedocumented in this encounter Care Teams Asphalt Coater Relationship Specialty Start Date End Date Oliver Robins MD [address] [address] PCP - General Internal Medicine 03/31/25 documented as of this encounter
== END 2025-08-04 14:59 | disposition home or self-care (01) ==
LOC: HO.HKA 14:44
PROVIDERS: PCP Internal Medicine; Visit Provider Internal Medicine Hypertension Specialist
DX: I10 Essential (primary) hypertension (principal)
CPT/HCPCS: 99214